=== PATIENT | female | born 1930 | race Asian ===

== ENCOUNTER 2018-12-24 03:14 | Inpatient (IN) | payer MEDICARE, MEDICAID ==
[2018-12-24] VITALS (7 sets, daily range): BP systolic 95–113; BP diastolic 47–54
[~2018-12-24] VITALS: Ht 157.5 cm; Wt 63.5 kg
[2018-12-24] MEDS ORDERED: METOPROLOL TART50 MG GT (03:29)
[2018-12-24] MEDS ORDERED: NORVASC5 MG ORAL (03:29)
[2018-12-24] MEDS ORDERED: HUMULIN N100 UNIT/1 SUBQ (03:29)
[2018-12-24] MEDS ORDERED: ASPIRIN81 M3 GT (03:29)
[2018-12-24] MEDS ORDERED: ATORVASTATIN CA10 MG GT (03:29)
[2018-12-24] MEDS ORDERED: COLACE100 MG GT (03:29)
[2018-12-24] MEDS ORDERED: Acetaminophen 650 MG SUPP RECTAL ONE (03:45)
[2018-12-24 04:19] LABS: HEMATOCRIT 32.8 % (37.0-47.0); HEMOGLOBIN 10.5 G/DL (12.0-16.0); MEAN CORPUSCULAR VOLUME 96 FL (80-99); PLATELET COUNT 208 K/UL (150-450); RED BLOOD COUNT 3.42 M/UL (4.20-5.40); RED CELL DISTRIBUTION WIDTH 16.4 % (11.6-14.8); WHITE BLOOD COUNT 19.8 K/UL (4.8-10.8)
--- NOTE | 2018-12-24 04:20 | Emergency Room Report ---
History of Present Illness General Chief Complaint: Dyspnea/Respdistress Source: Patient (Sebastian Flores MD) Present Illness HPI 88-year-old email resents ED for evaluation. Brought in by EMS. coming [facility]. Nursing staff noted that patient was short of breath tonight. Per EMS unclear whether patient is on oxygen at facility. Patient is unable to provide any additional history at this time. Also noted to be hypotensive. Reported fever as well. No signs of distress upon arrival. No reported chest pain. No other aggravating relieving factors. No other associated symptoms (Sebastian Flores MD) Allergies: Coded Allergies: No Known Allergies (Unverified , 12/24/18) Patient History Past Medical History: DM, HTN, CVA/TIA Past Surgical History: none Pertinent Family History: none Social History: Denies: smoking, alcohol use, drug use Last Menstrual Period: EVA Now: No Immunizations: UTD Reviewed Nursing Documentation: PMH: Agreed; PSxH: Agreed (Sebastian Flores MD) Nursing Documentation-PMH Past Medical History: No History, Except For Hx Hypertension: Yes Hx Diabetes: Yes Hx Cerebrovascular Accident: Yes - hemiplegia, hemiparesis, dysphagia, lumbar stenosis (Sebastian Flores MD) Review of Systems All Other Systems: limited (Sebastian Flores MD) Physical Exam Vital Signs Date Time Temp Pulse Resp B/P (MAP) Pulse Ox O2 Delivery O2 Flow Rate FiO2 12/24/18 03:14 99.3 109 20 93/62 93 Non-Rebreather Sp02 EP Interpretation: reviewed, normal General Appearance: no apparent distress, lethargic Head: normocephalic Eyes: bilateral eye normal inspection, bilateral eye PERRL ENT: normal ENT inspection Neck: normal inspection Respiratory: crackles Cardiovascular #1: regular rate, rhythm, no edema Gastrointestinal: normal bowel sounds, non tender, soft, non-distended, no guarding, no rebound Rectal: deferred Genitourinary: no CVA tenderness Musculoskeletal: normal inspection Neurologic: other - nonverbal Psychiatric: other - nonverbal Skin: normal inspection Lymphatic: normal inspection (Sebastian Flores MD) Procedures Critical Care Time Critical Care Time Patient had a critical medical condition which untreated could potentially result in life or limb threatening injury. Total critical care time excluding procedures was approximately 45 minutes. (Ruddy Agarwal MD) Medical Decision Making Diagnostic Impression: Primary Impression: Dyspnea Additional Impression: Respiratory distress ER Course Patient presents with severe respiratory distress. Seen by Dr. Flores. Patient was admitted to telemetry. While patient was in emergency department blood pressure began to decrease. Patient lactic acid level was also elevated. Blood cultures were obtained and patient was given fluid bolus. Patient was started IV antibiotics. Unfortunately patient appeared to be deteriorating with decrease in blood pressure and O2 saturation. Reevaluation shows that patient is showing worsening evidence of respiratory distress. We'll place the patient on BiPAP. Patient was also given fluid boluses to control blood pressure and lactic acid level. Case was discussed in detail with Dr. Pablo Oconnell who was in emergency department evaluated patient. Patient will be admitted to the [facility] for further management. Labs Test 12/24/18 04:14 12/24/18 05:15 12/24/18 06:20 White Blood Count 19.8 K/UL (4.8-10.8) Red Blood Count 3.42 M/UL (4.20-5.40) Hemoglobin 10.5 G/DL (12.0-16.0) Hematocrit 32.8 % (37.0-47.0) Mean Corpuscular Volume 96 FL (80-99) Mean Corpuscular Hemoglobin 30.8 PG (27.0-31.0) Mean Corpuscular Hemoglobin Concent 32.1 G/DL (32.0-36.0) Red Cell Distribution Width 16.4 % (11.6-14.8) Platelet Count 208 K/UL (150-450) Mean Platelet Volume 8.8 FL (6.5-10.1) Neutrophils (%) (Auto) % (45.0-75.0) Lymphocytes (%) (Auto) % (20.0-45.0) Monocytes (%) (Auto) % (1.0-10.0) Eosinophils (%) (Auto) % (0.0-3.0) Basophils (%) (Auto) % (0.0-2.0) Sodium Level 156 MMOL/L (136-145) Potassium Level 3.3 MMOL/L (3.5-5.1) Chloride Level 113 MMOL/L (98-107) Carbon Dioxide Level 33 MMOL/L (21-32) Anion Gap 11 mmol/L (5-15) Blood Urea Nitrogen 125 mg/dL (7-18) Creatinine 1.2 MG/DL (0.55-1.30) Estimat Glomerular Filtration Rate mL/min (>60) Glucose Level 137 MG/DL (74-106) Lactic Acid Level 2.70 mmol/L (0.4-2.0) Calcium Level 8.3 MG/DL (8.5-10.1) Total Bilirubin 0.8 MG/DL (0.2-1.0) Aspartate Amino Transf (AST/SGOT) 28 U/L (15-37) Alanine Aminotransferase (ALT/SGPT) 12 U/L (12-78) Alkaline Phosphatase 45 U/L (46-116) Total Creatine Kinase 76 U/L (26-308) Creatine Kinase MB < 0.5 NG/ML (0.0-3.6) Creatine Kinase MB Relative Index 0.6 Troponin I 0.101 ng/mL (0.000-0.056) Pro-B-Type Natriuretic Peptide 2146 pg/mL (0-125) Total Protein 7.7 G/DL (6.4-8.2) Albumin 2.9 G/DL (3.4-5.0) Globulin 4.8 g/dL Albumin/Globulin Ratio 0.6 (1.0-2.7) Urine Color Yellow Urine Appearance Cloudy Urine pH 7 (4.5-8.0) Urine Specific Buckner 1.010 (1.005-1.035) Urine Protein 2+ (NEGATIVE) Urine Glucose (UA) Negative (NEGATIVE) Urine Ketones Negative (NEGATIVE) Urine Blood Negative (NEGATIVE) Urine Nitrite Negative (NEGATIVE) Urine Bilirubin Negative (NEGATIVE) Urine Urobilinogen 1 MG/DL (0.0-1.0) Urine Leukocyte Esterase 1+ (NEGATIVE) Urine RBC 0-2 /HPF (0 - 2) Urine WBC 0-2 /HPF (0 - 2) Urine Squamous Epithelial Cells Few /LPF (NONE/OCC) Urine Bacteria Many /HPF (NONE) (Ruddy Agarwal MD) EKG Diagnostic Results Rate: tachycardiac Rhythm: NSR ST Segments: no acute changes ASA given to the pt in ED: No (Sebastian Flores MD) Rhythm Strip Diag. Results EP Interpretation: yes Rhythm: NSR, no ectopy (Sebastian Flores MD) Chest X-Ray Diagnostic Results Chest X-Ray Diagnostic Results : Chest X-Ray Ordered: Yes # of Views/Limited/Complete: 1 View Indication: Shortness of Breath EP Interpretation: Yes Interpretation: no effusion, no pneumothorax, other - Right-sided lower lobe cosolidation, pul congestion Impression: Other - Pneumonia Electronically Signed by: Electronically signed by Ruddy Agarwal MD (Ruddy Agarwal MD) Last Vital Signs Date Time Temp Pulse Resp B/P (MAP) Pulse Ox O2 Delivery O2 Flow Rate FiO2 12/24/18 03:14 99.3 109 20 93/62 93 Non-Rebreather Status: improved (Sebastian Flores MD) Status: improved (Ruddy Agarwal MD) Disposition: ADMITTED INPATIENT Condition: Serious Referrals: NON PHYSICIAN (PCP) Sebastian Flores MD Dec 24, 2018 04:20 Ruddy Agarwal MD Dec 24, 2018 07:22
[2018-12-24 04:33] LABS: ANION GAP 11 mmol/L (5-15); BLOOD UREA NITROGEN 125 mg/dL (7-18); CALCIUM 8.3 MG/DL (8.5-10.1); CARBON DIOXIDE 33 MMOL/L (21-32); CHLORIDE 113 MMOL/L (98-107); CREATININE 1.2 MG/DL (0.55-1.30); POTASSIUM 3.3 MMOL/L (3.5-5.1); SODIUM 156 MMOL/L (136-145)
[2018-12-24 04:47] LABS: ALANINE AMINOTRANSFERASE 12 U/L (12-78); ALBUMIN 2.9 G/DL (3.4-5.0); ALBUMIN/GLOBULIN RATIO 0.6 (1.0-2.7); ALKALINE PHOSPHATASE 45 U/L (46-116); ASPARTATE AMINO TRANSFERASE 28 U/L (15-37); BILIRUBIN,TOTAL 0.8 MG/DL (0.2-1.0); CKMB < 0.5 NG/ML (0.0-3.6); CREATINE KINASE 76 U/L (26-308)
[2018-12-24 05:27] LABS: BILIRUBIN, URINE NEGATIVE (NEGATIVE); GLUCOSE, URINE (UA) NEGATIVE (NEGATIVE); KETONES,URINE NEGATIVE (NEGATIVE); LEUKOCYTE ESTERASE ,URINE 1+ (NEGATIVE); NITRITE,URINE NEGATIVE (NEGATIVE); PH,URINE 7 (4.5-8.0); PROTEIN,URINE 2+ (NEGATIVE); UROBILINOGEN,URINE 1 MG/DL (0.0-1.0)
[2018-12-24 05:37] LABS: APPEARANCE,URINE CLOUDY; COLOR,URINE YELLOW
[2018-12-24] MEDS ORDERED: Piperacillin/Tazobactam 3.375 GM in NS 110 ML IVPB ONE (05:45)
[2018-12-24] MEDS ORDERED: Azithromycin 500 MG in NS 275 ML IV ONE (05:45)
[2018-12-24] MEDS: Metoprolol Tartrate 50mg tab GT SCH ×3 (10:00→21:24)
[2018-12-24] MEDS ORDERED: Docusate 100mg cap ORAL SCH (10:00)
[2018-12-24] MEDS: Aspirin Baby 81mg GT SCH ×2 (10:00→10:52)
[2018-12-24] MEDS: Docusate 100mg/10ml Liq GT SCH (10:52)
[2018-12-24] MEDS ORDERED: Vancomycin 1gm in D5W 275ml IVPB SCH ×4 (11:00)
--- NOTE | 2018-12-24 12:00 | History and Physical Report ---
DATE OF ADMISSION: 12/24/2018 CHIEF COMPLAINT: Sepsis, shortness of breath, acute NV. HISTORY OF PRESENT ILLNESS: The patient is an 88-year-old female. She has a prior history of stroke, G-tube, diabetes, and hypertension. She was transferred from a [place] [facility] facility with complaints of shortness of breath. The patient is a poor historian. She is unable to provide any history. In the emergency room, she was noted to be short of breath. She was placed on a non-rebreather. She had an elevated troponin of 0.1, sodium of 156, white count of 20,000. Her urine was clear. X-ray results are currently pending. The patient is now being admitted for further evaluation and care. PAST MEDICAL HISTORY: As above. PAST SURGICAL HISTORY: Includes a G-tube. CURRENT MEDICATIONS: Reconciled and reviewed. ALLERGIES: None. FAMILY HISTORY: Unknown. SOCIAL HISTORY: There is no known history of tobacco, ethanol, or drugs. REVIEW OF SYSTEMS: Unobtainable. PHYSICAL EXAMINATION: VITAL SIGNS: Temperature 103, pulse 95, respirations 32, and blood pressure 103/53. GENERAL: The patient is a chronically ill-appearing female, in no apparent distress. HEART: Regular rate and rhythm. LUNGS: Clear. ABDOMEN: Soft, nontender, and nondistended. EXTREMITIES: Without clubbing or cyanosis. LABORATORY DATA: Sodium 156, potassium 3.3, chloride 113, bicarb 33, BUN of 125, creatinine was 1.2. Lactic acid was 3.3. Troponin of 0.101. ASSESSMENT: This is an elderly female with history of diabetes, hypertension, stroke, admitted with complaints of sepsis: 1. Sepsis. 2. Possible acute NV. 3. Stroke. 4. History of hypertension. 5. Diabetes. PLAN: IV antibiotics. Supplemental oxygen. Breathing treatments as needed. We will follow up pending cultures. ID, Cardiology, and Pulmonary consultations to be obtained. We will continue G-tube feeds. Continue monitor blood sugars. We will titrate the patient's blood pressure regimen. Currently, the blood pressure is on the low side. We will monitor patient's lactic acid level. The patient's status is currently guarded. There for Do Not Resuscitate in the chart. Pablo Oconnell M.D. DR: KAMARI JOB#: [id number] CC:
[2018-12-24] MEDS: Piperacillin/Tazobactam 3.375 GM in D5W 110 ML IVPB SCH ×2 (12:17→20:09)
[2018-12-24] MEDS: Insulin NPH SUBQ SCH ×2 (12:18→17:26)
--- NOTE | 2018-12-24 12:21 | Diagnostic Imaging Report ---
Indication: Shortness of breath Technique: One view of the chest Comparison: none Findings: Heart is enlarged. There is equivocal mild interstitial congestion. The pleural spaces are clear. No focal airspace consolidation Impression: Cardiac megaly Equivocal mild interstitial congestion-correlate with clinical findings
[2018-12-24] MEDS: Heparin 5000 units/ml inj SUBQ SCH (21:31)
[2018-12-25] VITALS: BP 101/49
[2018-12-25 04:00] VITALS: BP 138/49
[2018-12-25] MEDS: Piperacillin/Tazobactam 3.375 GM in D5W 110 ML IVPB SCH ×2 (04:16→11:37)
[2018-12-25 04:35] LABS: HEMATOCRIT 25.4 % (37.0-47.0); HEMOGLOBIN 8.2 G/DL (12.0-16.0); MEAN CORPUSCULAR VOLUME 96 FL (80-99); PLATELET COUNT 148 K/UL (150-450); RED BLOOD COUNT 2.64 M/UL (4.20-5.40); RED CELL DISTRIBUTION WIDTH 15.9 % (11.6-14.8); WHITE BLOOD COUNT 15.1 K/UL (4.8-10.8)
--- NOTE | 2018-12-25 05:00 | Consultation ---
DATE OF CONSULTATION: 12/24/2018 CARDIOLOGY CONSULTATION CONSULTING PHYSICIAN: Jagjit Wright M.D. REQUESTING PHYSICIAN: Pablo Oconnell M.D. REASON FOR CONSULTATION: Acute myocardial infarction in the setting of sepsis. HISTORY OF PRESENT ILLNESS: This 88-year-old Urdu female resides at a [facility] facility and is debilitated as a result of a prior cerebrovascular accident. She has dysphagia and is dependent on a G-tube. She is aphasic. Her son is at bedside and reaffirmed DNR status. The patient was transferred to the emergency room because of shortness of breath. She was unable to provide history and charts were reviewed. She was placed on a non-rebreather mask and was noted to have severely abnormal lab studies. She was admitted to the cardiac observation unit and I have been asked to address cardiovascular care. PAST MEDICAL HISTORY: Includes cerebrovascular accident, dysphagia, G-tube, aphasia, type 2 diabetes mellitus, hypertensive heart disease, osteoarthritis, and osteoporosis. ALLERGIES: None. MEDICATIONS: Reviewed and reconciled. SOCIAL HISTORY: Negative for smoking, alcohol, or substance abuse. FAMILY HISTORY: Noncontributory. REVIEW OF SYSTEMS: Not obtainable from the patient at this time. Pertinent data from patient's son as outlined above. The patient does not have any details about her more recent situation as he resides in [place]. The patient did receive an influenza vaccination this season. PHYSICAL EXAMINATION: VITAL SIGNS: Temperature 103, blood pressure 103/53, heart rate 95, and respiratory rate 32. GENERAL: Ill-appearing, noncommunicative, and moderate respiratory distress. HEENT: Eyes are shut. Oropharynx clear. Accessory muscle use noted on BiPAP support. LUNGS: Coarse breath sounds. No wheezing. CARDIAC: Regular rhythm and rate. Normal S1, S2 with a fourth heart sound. ABDOMEN: Soft and nontender. G-tube site intact. EXTREMITIES: With no edema. Poor capillary refill is noted, and some mottling. LABORATORY DATA: White count 19.8 and hemoglobin 10.5. ABG - 7.5, 35, 369. Sodium 156 and potassium 3.3. Lactic acid 2.7. BUN 125, creatinine 1.2, bicarbonate 33, chloride 113, and glucose 137. Troponin 0.101. Pro-natriuretic peptide 2146. Albumin 2.9. Urinalysis with 0 to 2 white cells. Chest x-ray with interstitial congestion and cardiomegaly. EKG with sinus rhythm, nonspecific ST-T changes. IMPRESSION: 1. Sepsis. 2. Shock. 3. Severe dehydration. 4. Hypovolemia. 5. Possible aspiration pneumonia. 6. Acute myocardial ischemia and possible non-ST elevation infarction. 7. Elevated natriuretic peptide assay likely suggestive of chronic diastolic congestive heart failure. 8. Cerebrovascular disease with advanced dementia. 9. Lactic acidosis. PLAN: 1. Hypotonic IV fluids. 2. Free water by G-tube. 3. Broad-spectrum antibiotics. 4. DVT prophylaxis. 5. Inhaled bronchodilators. 6. Respiratory hygiene. 7. Taper off BiPAP as able. 8. No diuresis at this time. 9. Serial lactic acid levels. 10. Serial troponin levels. 11. DNR/DNI based on advanced directives. Jagjit Wright M.D. DR: JOSE JOB#: [id number] CC:
[2018-12-25 05:07] LABS: ALANINE AMINOTRANSFERASE 14 U/L (12-78); ALBUMIN 2.2 G/DL (3.4-5.0); ALBUMIN/GLOBULIN RATIO 0.6 (1.0-2.7); ALKALINE PHOSPHATASE 48 U/L (46-116); ANION GAP 6 mmol/L (5-15); ASPARTATE AMINO TRANSFERASE 30 U/L (15-37); BILIRUBIN,TOTAL 0.7 MG/DL (0.2-1.0); BLOOD UREA NITROGEN 67 mg/dL (7-18); CALCIUM 7.4 MG/DL (8.5-10.1); CARBON DIOXIDE 32 MMOL/L (21-32); CHLORIDE 121 MMOL/L (98-107); CREATININE 0.8 MG/DL (0.55-1.30); POTASSIUM 2.8 MMOL/L (3.5-5.1); SODIUM 159 MMOL/L (136-145)
[2018-12-25] MEDS: Insulin NPH SUBQ SCH ×2 (06:23→17:18)
[2018-12-25 08:00] VITALS: BP 101/56
[2018-12-25] MEDS: Aspirin Baby 81mg GT SCH (08:43)
[2018-12-25] MEDS: Heparin 5000 units/ml inj SUBQ SCH ×2 (08:45→21:00)
[2018-12-25] MEDS: Metoprolol Tartrate 50mg tab GT SCH ×2 (09:00→21:03)
--- NOTE | 2018-12-25 09:36 | General Progress Note ---
Assessment/Plan Problem List: (1) Sepsis ICD Codes: A41.9 - Sepsis, unspecified organism SNOMED: 12844255 (2) PNA (pneumonia) ICD Codes: J18.9 - Pneumonia, unspecified organism SNOMED: 851519070 (3) AMI (acute myocardial infarction) ICD Codes: I21.9 - Acute myocardial infarction, unspecified SNOMED: 84071139 (4) Dyspnea ICD Codes: R06.00 - Dyspnea, unspecified SNOMED: 606703558 (5) Respiratory distress ICD Codes: R06.03 - Acute respiratory distress SNOMED: 825038284 (6) Shortness of breath ICD Codes: R06.02 - Shortness of breath SNOMED: 077627252 Status: stable, progressing Assessment/Plan cont current rxc abx follow up culttures await labs will adjust fluids when labs back dvt/stress ulcer prophylaxis skin care antiplt Subjective ROS Limited/Unobtainable: No Constitutional: Reports: malaise, weakness HEENT: Reports: no symptoms Cardiovascular: Reports: no symptoms Respiratory: Reports: cough, shortness of breath Gastrointestinal/Abdominal: Reports: no symptoms Genitourinary: Reports: no symptoms Neurologic/Psychiatric: Reports: pre-existing deficit Endocrine: Reports: no symptoms Hematologic/Lymphatic: Reports: anemia Allergies: Coded Allergies: No Known Allergies (Unverified , 12/24/18) All Systems: reviewed and negative except above Subjective no events. seems less sob. no fever or chills. labs pending for today. remains withdrawn and poorly responsive Objective Last 24 Hour Vital Signs Date Time Temp Pulse Resp B/P (MAP) Pulse Ox O2 Delivery O2 Flow Rate FiO2 12/25/18 09:00 78 101/56 12/25/18 08:00 Bi-pap 12/25/18 08:00 97.9 78 18 101/56 (71) 99 12/25/18 04:00 Bi-pap 12/25/18 04:00 98.6 78 24 138/49 (78) 99 12/25/18 04:00 84 12/25/18 00:00 97.5 76 24 101/49 (66) 95 12/25/18 00:00 Bi-pap 12/25/18 00:00 74 12/24/18 21:00 78 113/54 12/24/18 20:54 78 16 99 Facial 40 12/24/18 20:00 73 12/24/18 20:00 45 12/24/18 20:00 98.4 80 18 113/54 (73) 99 12/24/18 20:00 Bi-pap 12/24/18 19:16 72 18 100 Facial 45 12/24/18 17:15 74 20 99 Facial 60 12/24/18 16:00 Bi-pap 12/24/18 16:00 98.1 76 22 98/53 (68) 98 12/24/18 16:00 76 12/24/18 16:00 60 12/24/18 15:20 84 22 97 Facial 60 12/24/18 14:52 Bi-pap 12/24/18 13:28 72 18 98 Facial 60 12/24/18 12:00 98.1 75 26 95/48 (64) 100 12/24/18 12:00 60 12/24/18 12:00 73 12/24/18 10:00 80 96/47 12/24/18 10:00 98.1 80 26 96/47 (63) 100 12/24/18 09:58 98.5 84 33 96/54 100 Bi-pap 100 Intake and Output 12/24/18 12/25/18 19:00 07:00 Intake Total 1790.0 ml 1863.0 ml Balance 1790.0 ml 1863.0 ml Free Water 150 ml 150 ml IV Total 1310.0 ml 1353.0 ml Tube Feeding 330 ml 360 ml # Voids 3 1 # Bowel Movements 3 2 Laboratory Tests 12/25/18 03:15: White Blood Count 15.1H, Red Blood Count 2.64L, Hemoglobin 8.2L, Hematocrit 25.4L, Mean Corpuscular Volume 96, Mean Corpuscular Hemoglobin 31.0, Mean Corpuscular Hemoglobin Concent 32.3, Red Cell Distribution Width 15.9H, Platelet Count 148L, Mean Platelet Volume 10.2H, Neutrophils (%) (Auto) , Lymphocytes (%) (Auto) , Monocytes (%) (Auto) , Eosinophils (%) (Auto) , Basophils (%) (Auto) , Sodium Level 159H, Potassium Level 2.8L, Chloride Level 121H, Carbon Dioxide Level 32, Anion Gap 6, Blood Urea Nitrogen 67H, Creatinine 0.8, Estimat Glomerular Filtration Rate , Glucose Level 94, Lactic Acid Level 1.80, Calcium Level 7.4L, Total Bilirubin 0.7, Aspartate Amino Transf (AST/SGOT ) 30, Alanine Aminotransferase (ALT/SGPT) 14, Alkaline Phosphatase 48, Troponin I 0.043, Total Protein 5.8L, Albumin 2.2L, Globulin 3.6, Albumin/Globulin Ratio 0.6L Height (Feet): 5 Height (Inches): 2.00 Weight (Pounds): 160 General Appearance: WD/WN, no apparent distress, confused Cardiovascular: regular rhythm Respiratory/Chest: chest wall non-tender, lungs clear, normal breath sounds Abdomen: normal bowel sounds, non tender, soft, no organomegaly Edema: no edema noted Arm (L), no edema noted Arm (R), no edema noted Leg (L), no edema noted Leg (R), no edema noted Pedal (L), no edema noted Pedal (R), no edema noted Generalized Neurologic: disoriented, unresponsive, aphasia Pablo Oconnell MD Dec 25, 2018 09:36
[2018-12-25] MEDS ORDERED: Vancomycin 750mg/D5W 275ml IVPB SCH ×2 (11:00)
[2018-12-25] MEDS: Docusate 100mg/10ml Liq GT SCH (11:35)
[2018-12-25 12:00] VITALS: BP 112/62
[2018-12-25 13:35] LABS: ALANINE AMINOTRANSFERASE 11 U/L (12-78); ALBUMIN 2.2 G/DL (3.4-5.0); ALBUMIN/GLOBULIN RATIO 0.6 (1.0-2.7); ALKALINE PHOSPHATASE 54 U/L (46-116); ANION GAP 7 mmol/L (5-15); ASPARTATE AMINO TRANSFERASE 24 U/L (15-37); BILIRUBIN,TOTAL 0.8 MG/DL (0.2-1.0); BLOOD UREA NITROGEN 54 mg/dL (7-18); CALCIUM 7.6 MG/DL (8.5-10.1); CARBON DIOXIDE 29 MMOL/L (21-32); CHLORIDE 120 MMOL/L (98-107); CREATININE 0.8 MG/DL (0.55-1.30); POTASSIUM 3.3 MMOL/L (3.5-5.1); SODIUM 156 MMOL/L (136-145)
--- NOTE | 2018-12-25 15:45 | Consultation ---
DATE OF CONSULTATION: 12/25/2018 INFECTIOUS DISEASES CONSULTATION CONSULTING PHYSICIAN: Flavia Macdonald M.D. REFERRING PHYSICIAN: Jagjit Wright M.D. REASON FOR CONSULTATION: Possible aspiration pneumonia. HISTORY OF PRESENTING ILLNESS: This is an 88-year-old lady with history of CVA, G-tube placement, diabetes, hypertension, who was transferred to the emergency room because of shortness of breath. She was found to have pneumonia and Infectious Diseases consultation has been obtained for antibiotics. PAST MEDICAL HISTORY: 1. History of CVA. 2. Dysphagia, status post G-tube placement. 3. Diabetes. 4. Hypertension. 5. Osteoarthritis. 6. Osteoporosis. SOCIAL HISTORY: No history of smoking, alcohol, or drug use. FAMILY HISTORY: Unknown. REVIEW OF SYSTEMS: Unable to obtain currently. MEDICATIONS: As an inpatient, the patient is on potassium, vancomycin, subcutaneous heparin, Zosyn, insulin, aspirin, metoprolol, albuterol, ipratropium, docusate. ALLERGIES: No known drug allergies. PHYSICAL EXAMINATION: VITAL SIGNS: Temperature of 97.9, T-max of 98.8, pulse of 78, respiratory rate of 18, blood pressure 101/56, O2 saturation of 99%. HEENT: Pupils equally reactive to light and accommodation. Mouth appears clean without thrush. NECK: Supple. No adenopathy. No JVD. CARDIOVASCULAR: Regular rate and rhythm. No murmurs. LUNGS: Clear to auscultation bilaterally. No crackles. No wheezes. ABDOMEN: Soft and nontender. No organomegaly. G-tube site appears clean. EXTREMITIES: No cyanosis. No clubbing. Edema noted bilaterally. LABORATORY AND DIAGNOSTIC DATA: White count of 19 on 12/24/2018. White count of 15 today. Hemoglobin 8.2, hematocrit 25.4, MCV 96, platelet count of 148,000. Sodium 159, potassium 2.8, chloride 121, bicarbonate 32, BUN 67, creatinine 0.8, glucose 94, calcium 7.4, total bilirubin 0.7, AST 30, ALT 14, alkaline phosphatase 48. Troponin 0.043. Total protein 5.8, albumin 2.2. UA is showing 0 to 2 white cells. Urine cultures are pending. Nasal swab was negative for influenza A and B. Chest x-ray is showing equivocal mild interstitial congestion. ASSESSMENT: This is an 88-year-old lady with history of diabetes, hypertension, CVA, who comes in with shortness of breath and is found to have: 1. Possible aspiration pneumonia. 2. Leukocytosis is improving. 3. Diabetes. 4. Hypertension. PLAN: 1. Continue IV vancomycin and Zosyn. 2. We will order sputum for Gram stain and culture. 3. We will follow up cultures and adjust antibiotics accordingly. I would like to thank Dr. Oconnell for this consultation. Flavia Macdonald M.D. DR: Jaycob JOB#: [id number] CC: Pablo Oconnell M.D.
[2018-12-25 16:00] VITALS: BP 127/69
[2018-12-25] MEDS: Albuterol/Ipratropium 3ml neb HHN PRN (17:10)
[2018-12-25] MEDS: NovoLOG Insulin Flexpen SUBQ SCH ×2 (17:18→23:11)
[2018-12-25 20:00] VITALS: BP 135/62
[2018-12-25] MEDS: Piperacillin/Tazobactam 3.375 GM in NS 110 ML IVPB SCH (21:00)
[2018-12-26] VITALS: BP 129/64
--- NOTE | 2018-12-26 01:00 | Progress Note ---
DATE: 12/25/2018 SUBJECTIVE: The patient is less congested, but at times still short of breath. No fever spikes. Withdrawn and poorly responsive. Monitored rhythm, sinus arrhythmia, rare PACs. PHYSICAL EXAMINATION: LUNGS: Bilateral breath sounds. Rhonchi. HEART: Regular rhythm and rate. Normal S1, S2 with a fourth heart sound and a 1/6 systolic murmur at the base. ABDOMEN: Soft. No ascites. EXTREMITIES: With better capillary refill. Trace dependent edema. LABORATORY DATA: White count 15, hemoglobin 8.2. Sodium 156, potassium 3.1, BUN 54, creatinine 0.8, potassium 3.3, and chloride 120. Albumin 2.2. Lactic acid is 1.8. IMPRESSION: 1. Severe sepsis. 2. Aspiration pneumonia. 3. Type 2 diabetes mellitus. 4. Severe dehydration. 5. Hypernatremia. 6. Hyperchloremia. 7. Hypokalemia. 8. Severe protein-calorie malnutrition. 9. Prerenal azotemia. 10. Resolved lactic acidosis. 11. Atrial ectopy and arrhythmia. PLAN: 1. Antimicrobials. 2. Respiratory hygiene. 3. Aspiration precautions. 4. Potassium replacement. 5. DVT prophylaxis. 6. Further recommendations to follow. 7. DNR/DNI based on advanced directives. 8. Nutrition by G-tube. Jagjit Wright M.D. DRMukesh CHEN JOB#: [id number] CC:
--- NOTE | 2018-12-26 01:26 | Cardiology Report ---
APPROVED REPORT EKG Measurement Heart [id number] Sinus tachycardia with premature supraventricular complexes Left axis deviation Moderate voltage criteria for LVH, may be normal variant Abnormal ECG
[2018-12-26 04:00] VITALS: BP 126/55
[2018-12-26] MEDS: Piperacillin/Tazobactam 3.375 GM in NS 110 ML IVPB SCH ×3 (04:15→20:48)
[2018-12-26] MEDS: NovoLOG Insulin Flexpen SUBQ SCH ×3 (05:08→17:34)
[2018-12-26 05:45] LABS: HEMATOCRIT 24.4 % (37.0-47.0); HEMOGLOBIN 7.8 G/DL (12.0-16.0); MEAN CORPUSCULAR VOLUME 97 FL (80-99); PLATELET COUNT 152 K/UL (150-450); RED BLOOD COUNT 2.52 M/UL (4.20-5.40); RED CELL DISTRIBUTION WIDTH 16.5 % (11.6-14.8); WHITE BLOOD COUNT 9.4 K/UL (4.8-10.8)
[2018-12-26] MEDS: Insulin NPH SUBQ SCH ×2 (05:45→17:33)
[2018-12-26 06:22] LABS: ALANINE AMINOTRANSFERASE 14 U/L (12-78); ALBUMIN 2.1 G/DL (3.4-5.0); ALBUMIN/GLOBULIN RATIO 0.6 (1.0-2.7); ALKALINE PHOSPHATASE 46 U/L (46-116); ANION GAP 8 mmol/L (5-15); ASPARTATE AMINO TRANSFERASE 26 U/L (15-37); BILIRUBIN,TOTAL 0.6 MG/DL (0.2-1.0); BLOOD UREA NITROGEN 39 mg/dL (7-18); CALCIUM 7.9 MG/DL (8.5-10.1); CARBON DIOXIDE 28 MMOL/L (21-32); CHLORIDE 122 MMOL/L (98-107); CREATININE 0.7 MG/DL (0.55-1.30); POTASSIUM 3.8 MMOL/L (3.5-5.1); SODIUM 158 MMOL/L (136-145)
[2018-12-26 08:00] VITALS: BP 120/56
--- NOTE | 2018-12-26 08:45 | General Progress Note ---
Assessment/Plan Problem List: (1) Sepsis ICD Codes: A41.9 - Sepsis, unspecified organism SNOMED: 57451156 (2) PNA (pneumonia) ICD Codes: J18.9 - Pneumonia, unspecified organism SNOMED: 136091846 (3) AMI (acute myocardial infarction) ICD Codes: I21.9 - Acute myocardial infarction, unspecified SNOMED: 30700362 (4) Dyspnea ICD Codes: R06.00 - Dyspnea, unspecified SNOMED: 152079872 (5) Respiratory distress ICD Codes: R06.03 - Acute respiratory distress SNOMED: 457957520 (6) Shortness of breath ICD Codes: R06.02 - Shortness of breath SNOMED: 209930823 Status: stable Assessment/Plan cont current rxc abx follow up culttures await labs hypotonic ivf repeat cbc monitor bmp dvt/stress ulcer prophylaxis skin care antiplt Subjective ROS Limited/Unobtainable: No Constitutional: Reports: malaise, weakness HEENT: Reports: no symptoms Cardiovascular: Reports: no symptoms Respiratory: Reports: no symptoms Gastrointestinal/Abdominal: Reports: no symptoms Genitourinary: Reports: no symptoms Neurologic/Psychiatric: Reports: pre-existing deficit Endocrine: Reports: no symptoms Hematologic/Lymphatic: Reports: no symptoms Allergies: Coded Allergies: No Known Allergies (Unverified , 12/24/18) All Systems: reviewed and negative except above Subjective no events. seems less sob. no fever or chills. elevated sodium noted. decrease h /h noted. . remains withdrawn and poorly responsive Objective Last 24 Hour Vital Signs Date Time Temp Pulse Resp B/P (MAP) Pulse Ox O2 Delivery O2 Flow Rate FiO2 12/26/18 08:00 98.4 80 27 120/56 (77) 100 12/26/18 08:00 Venturi Mask Venturi Mask Venturi Mask 12/26/18 04:00 Venturi Mask Venturi Mask Venturi Mask 12/26/18 04:00 96.8 76 24 126/55 (78) 100 12/26/18 04:00 82 12/26/18 00:00 97.9 85 24 129/64 (85) 98 12/26/18 00:00 Venturi Mask Venturi Mask Venturi Mask 12/26/18 00:00 83 12/25/18 23:35 97 Venturi Mask 8.0 40 12/25/18 23:35 Venturi Mask 8.0 40 12/25/18 21:03 92 135/62 12/25/18 20:00 98.1 92 24 135/62 (86) 98 12/25/18 20:00 Venturi Mask Venturi Mask Venturi Mask 12/25/18 19:55 88 12/25/18 17:23 92 28 98 Venturi Mask 8.0 40 12/25/18 17:11 89 32 100 Venturi Mask 12.0 50 12/25/18 16:00 98.1 88 22 127/69 (88) 100 12/25/18 16:00 Bi-pap 12/25/18 15:41 88 12/25/18 12:01 Bi-pap 12/25/18 12:00 98.1 88 24 112/62 (79) 98 12/25/18 11:31 89 12/25/18 09:00 78 101/56 Intake and Output 12/25/18 12/26/18 19:00 07:00 Intake Total 1637.5 ml 1580.0 ml Output Total 600 ml 200 ml Balance 1037.5 ml 1380.0 ml Free Water 150 ml 90 ml IV Total 1127.5 ml 1190.0 ml Tube Feeding 360 ml 300 ml Output Urine Total 600 ml 200 ml # Voids 1 # Bowel Movements 4 2 Laboratory Tests 12/25/18 13:15: Sodium Level 156H, Potassium Level 3.3L, Chloride Level 120H, Carbon Dioxide Level 29, Anion Gap 7, Blood Urea Nitrogen 54H, Creatinine 0.8, Estimat Glomerular Filtration Rate , Glucose Level 175H, Calcium Level 7.6L, Total Bilirubin 0.8, Aspartate Amino Transf (AST/SGOT) 24, Alanine Aminotransferase ( ALT/SGPT) 11L, Alkaline Phosphatase 54, Total Protein 6.2L, Albumin 2.2L, Globulin 4.0, Albumin/Globulin Ratio 0.6L 12/26/18 03:15: Sodium Level 158H, Potassium Level 3.8, Chloride Level 122H, Carbon Dioxide Level 28, Anion Gap 8, Blood Urea Nitrogen 39H, Creatinine 0.7, Estimat Glomerular Filtration Rate , Glucose Level 111H, Calcium Level 7.9L, Total Bilirubin 0.6, Aspartate Amino Transf (AST/SGOT) 26, Alanine Aminotransferase ( ALT/SGPT) 14, Alkaline Phosphatase 46, Total Protein 5.7L, Albumin 2.1L, Globulin 3.6, Albumin/Globulin Ratio 0.6L, White Blood Count 9.4, Red Blood Count 2.52L, Hemoglobin 7.8L, Hematocrit 24.4L, Mean Corpuscular Volume 97, Mean Corpuscular Hemoglobin 31.1H, Mean Corpuscular Hemoglobin Concent 32.1, Red Cell Distribution Width 16.5H, Platelet Count 152, Mean Platelet Volume 9.5 , Neutrophils (%) (Auto) , Lymphocytes (%) (Auto) , Monocytes (%) (Auto) , Eosinophils (%) (Auto) , Basophils (%) (Auto) , Differential Total Cells Counted 100, Neutrophils % (Manual) 88H, Lymphocytes % (Manual) 8L, Monocytes % (Manual) 3, Eosinophils % (Manual) 1, Basophils % (Manual) 0, Band Neutrophils 0 , Platelet Estimate Adequate, Platelet Morphology Normal, Anisocytosis 1+, Magnesium Level 3.1H Height (Feet): 5 Height (Inches): 2.00 Weight (Pounds): 138 Objective General Appearance: WD/WN, no apparent distress, confused Cardiovascular: regular rhythm Respiratory/Chest: chest wall non-tender, lungs clear, normal breath sounds Abdomen: normal bowel sounds, non tender, soft, no organomegaly Edema: no edema noted Arm (L), no edema noted Arm (R), no edema noted Leg (L), no edema noted Leg (R), no edema noted Pedal (L), no edema noted Pedal (R), no edema noted Generalized Neurologic: disoriented, unresponsive, aphasia Pablo Oconnell MD Dec 26, 2018 08:45
[2018-12-26] MEDS: Docusate 100mg/10ml Liq GT SCH (08:52)
[2018-12-26] MEDS: Aspirin Baby 81mg GT SCH (08:52)
[2018-12-26] MEDS: Metoprolol Tartrate 50mg tab GT SCH ×2 (08:53→20:49)
[2018-12-26] MEDS: Heparin 5000 units/ml inj SUBQ SCH ×2 (08:54→20:51)
[2018-12-26 09:15] LABS: BASOPHILS % (AUTO) 0.6 % (0.0-2.0); EOSINOPHILS % (AUTO) 4.4 % (0.0-3.0); HEMATOCRIT 25.7 % (37.0-47.0); HEMOGLOBIN 8.2 G/DL (12.0-16.0); LYMPHOCYTES % (AUTO) 10.3 % (20.0-45.0); MEAN CORPUSCULAR VOLUME 97 FL (80-99); MONOCYTES % (AUTO) 4.5 % (1.0-10.0); NEUTROPHILS % (AUTO) 80.2 % (45.0-75.0); PLATELET COUNT 155 K/UL (150-450); RED BLOOD COUNT 2.65 M/UL (4.20-5.40); RED CELL DISTRIBUTION WIDTH 16.2 % (11.6-14.8); WHITE BLOOD COUNT 8.5 K/UL (4.8-10.8)
[2018-12-26 09:33] LABS: % IRON SATURATION 23 % (15-50); IRON 36 ug/dL (50-175); TOTAL IRON BINDING CAPACITY 159 ug/dL (250-450)
[2018-12-26] MEDS ORDERED: Vancomycin 750 MG in NS 275 ML IVPB SCH (11:00)
--- NOTE | 2018-12-26 11:13 | Diagnostic Imaging Report ---
Indication: Shortness of breath Technique: One view of the chest Comparison: 12/24/2018 Findings: Interim development of infiltrates in the right mid and lower lung. The left hemidiaphragm is partially obscured, retrocardiac consolidation also possible. The heart is enlarged. The right costophrenic angle is now blunted. Impression: Infiltrates versus edema in the right mid and lower lung, new since previous study of 2 days earlier Small right pleural effusion, also new Partially obscured left hemidiaphragm, retrocardiac pleural and/or parenchymal disease also likely
[2018-12-26 12:00] VITALS: BP 103/58
--- NOTE | 2018-12-26 12:50 | Infectious Diseases Prog Note ---
Assessment/Plan Assessment/Plan A; 1. aspiration pneumonia. 2. Leukocytosis is improving. 3. Diabetes. 4. Hypertension. 5. Hypernatremia 6. Anemia 7. Bacteremia with GPC PLAN: 1. Continue IV vancomycin and Zosyn. 2. We will follow up cultures and adjust antibiotics accordingly. Subjective ROS Limited/Unobtainable: Yes Allergies: Coded Allergies: No Known Allergies (Unverified , 12/24/18) Objective Vital Signs Last 24 Hour Vital Signs Date Time Temp Pulse Resp B/P (MAP) Pulse Ox O2 Delivery O2 Flow Rate FiO2 12/26/18 08:53 80 120/56 12/26/18 08:00 98.4 80 27 120/56 (77) 100 12/26/18 08:00 Venturi Mask Venturi Mask Venturi Mask 12/26/18 08:00 81 12/26/18 04:00 Venturi Mask Venturi Mask Venturi Mask 12/26/18 04:00 96.8 76 24 126/55 (78) 100 12/26/18 04:00 82 12/26/18 00:00 97.9 85 24 129/64 (85) 98 12/26/18 00:00 Venturi Mask Venturi Mask Venturi Mask 12/26/18 00:00 83 12/25/18 23:35 97 Venturi Mask 8.0 40 12/25/18 23:35 Venturi Mask 8.0 40 12/25/18 21:03 92 135/62 12/25/18 20:00 98.1 92 24 135/62 (86) 98 12/25/18 20:00 Venturi Mask Venturi Mask Venturi Mask 12/25/18 19:55 88 12/25/18 17:23 92 28 98 Venturi Mask 8.0 40 12/25/18 17:11 89 32 100 Venturi Mask 12.0 50 12/25/18 16:00 98.1 88 22 127/69 (88) 100 12/25/18 16:00 Bi-pap 12/25/18 15:41 88 Height (Feet): 5 Height (Inches): 2.00 Weight (Pounds): 138 General Appearance: no acute distress HEENT: mucous membranes moist Respiratory/Chest: rhonchi - bilaterally, other - Oxygen by mask Cardiovascular: normal rate Abdomen: soft, non tender, other - GT feeding Extremities: no edema Neurologic/Psychiatric: unresponsiveness Microbiology Date/Time Source Procedure Growth Status 12/24/18 04:06 Blood Blood Culture - Preliminary Resulted 12/24/18 04:00 Blood Blood Culture - Preliminary NO GROWTH AFTER 24 HOURS Resulted 12/24/18 05:20 Nasal Nares Influenza Types A,B Antigen ([facility]) - Final Complete 12/24/18 04:30 Nasal Nares MRSA Culture - Final NO METHICILLIN RESISTANT STAPH AUREUS... Complete 12/24/18 05:15 Urine,Clean Catch Urine Culture - Preliminary Strep Species, Alpha Hemolytic Resulted 12/24/18 04:30 Rectum - Final NO CARBAPENEM-RESISTANT ENTEROBACTERI... Complete 12/24/18 04:30 Rectum VRE Culture - Final NO VANCOMYCIN RESISTANT ENTEROCOCCUS ... Complete Laboratory Tests Test 12/25/18 13:15 12/26/18 03:15 12/26/18 08:45 12/26/18 10:09 Sodium Level 156 MMOL/L (136-145) H 158 MMOL/L (136-145) H Potassium Level 3.3 MMOL/L (3.5-5.1) L 3.8 MMOL/L (3.5-5.1) Chloride Level 120 MMOL/L (98-107) H 122 MMOL/L (98-107) H Carbon Dioxide Level 29 MMOL/L (21-32) 28 MMOL/L (21-32) Anion Gap 7 mmol/L (5-15) 8 mmol/L (5-15) Blood Urea Nitrogen 54 mg/dL (7-18) H 39 mg/dL (7-18) H Creatinine 0.8 MG/DL (0.55-1.30) 0.7 MG/DL (0.55-1.30) Estimat Glomerular Filtration Rate mL/min (>60) mL/min (>60) Glucose Level 175 MG/DL (74-106) H 111 MG/DL (74-106) H Calcium Level 7.6 MG/DL (8.5-10.1) L 7.9 MG/DL (8.5-10.1) L Total Bilirubin 0.8 MG/DL (0.2-1.0) 0.6 MG/DL (0.2-1.0) Aspartate Amino Transf (AST/SGOT) 24 U/L (15-37) 26 U/L (15-37) Alanine Aminotransferase (ALT/SGPT) 11 U/L (12-78) L 14 U/L (12-78) Alkaline Phosphatase 54 U/L (46-116) 46 U/L (46-116) Total Protein 6.2 G/DL (6.4-8.2) L 5.7 G/DL (6.4-8.2) L Albumin 2.2 G/DL (3.4-5.0) L 2.1 G/DL (3.4-5.0) L Globulin 4.0 g/dL 3.6 g/dL Albumin/Globulin Ratio 0.6 (1.0-2.7) L 0.6 (1.0-2.7) L White Blood Count 9.4 K/UL (4.8-10.8) 8.5 K/UL (4.8-10.8) Red Blood Count 2.52 M/UL (4.20-5.40) L 2.65 M/UL (4.20-5.40) L Hemoglobin 7.8 G/DL (12.0-16.0) L 8.2 G/DL (12.0-16.0) L Hematocrit 24.4 % (37.0-47.0) L 25.7 % (37.0-47.0) L Mean Corpuscular Volume 97 FL (80-99) 97 FL (80-99) Mean Corpuscular Hemoglobin 31.1 PG (27.0-31.0) H 30.8 PG (27.0-31.0) Mean Corpuscular Hemoglobin Concent 32.1 G/DL (32.0-36.0) 31.8 G/DL (32.0-36.0) L Red Cell Distribution Width 16.5 % (11.6-14.8) H 16.2 % (11.6-14.8) H Platelet Count 152 K/UL (150-450) 155 K/UL (150-450) Mean Platelet Volume 9.5 FL (6.5-10.1) 9.1 FL (6.5-10.1) Neutrophils (%) (Auto) % (45.0-75.0) 80.2 % (45.0-75.0) H Lymphocytes (%) (Auto) % (20.0-45.0) 10.3 % (20.0-45.0) L Monocytes (%) (Auto) % (1.0-10.0) 4.5 % (1.0-10.0) Eosinophils (%) (Auto) % (0.0-3.0) 4.4 % (0.0-3.0) H Basophils (%) (Auto) % (0.0-2.0) 0.6 % (0.0-2.0) Differential Total Cells Counted 100 Neutrophils % (Manual) 88 % (45-75) H Lymphocytes % (Manual) 8 % (20-45) L Monocytes % (Manual) 3 % (1-10) Eosinophils % (Manual) 1 % (0-3) Basophils % (Manual) 0 % (0-2) Band Neutrophils 0 % (0-8) Platelet Estimate Adequate Platelet Morphology Normal Anisocytosis 1+ Magnesium Level 3.1 MG/DL (1.8-2.4) H Iron Level 36 ug/dL (50-175) L Total Iron Binding Capacity 159 ug/dL (250-450) L Percent Iron Saturation 23 % (15-50) Unsaturated Iron Binding 123 ug/dL (112-346) Arterial Blood pH 7.453 (7.350-7.450) Arterial Blood Partial Pressure CO2 39.9 mmHg (35.0-45.0) Arterial Blood Partial Pressure O2 85.1 mmHg (75.0-100.0) Arterial Blood HCO3 27.3 mmol/L (22.0-26.0) H Arterial Blood Oxygen Saturation 95.8 % (95-100) Arterial Blood Base Excess 3.1 (-2-2) H Brennon Test Positive Current Medications Medications (Trade) Dose Ordered Sig/João Route PRN Reason Start Time Stop Time Status Last Admin Dose Admin Albuterol/ Ipratropium (Albuterol/ Ipratropium) 3 ml Q4H PRN HHN Shortness of Breath 12/24/18 10:00 12/29/18 09:59 12/25/18 17:10 Aspirin (ASA) 81 mg DAILY GT 12/24/18 10:00 01/23/19 09:59 12/26/18 08:52 Dextrose 1,000 ml @ 75 mls/hr [id number] IV 12/26/18 08:45 4/5/19 08:44 12/26/18 08:53 Dextrose (Dextrose 50%) 25 ml Q30M PRN IV Hypoglycemia 12/25/18 16:30 01/24/19 16:29 Dextrose (Dextrose 50%) 50 ml Q30M PRN IV Hypoglycemia 12/25/18 16:30 01/24/19 16:29 Docusate Sodium (Colace) 100 mg DAILY GT 12/24/18 10:00 01/23/19 09:59 12/26/18 08:52 Heparin Sodium (Porcine) (Heparin 5000 units/ml) 5,000 units EVERY 12 HOURS SUBQ 12/24/18 21:00 01/23/19 20:59 12/26/18 08:54 Insulin Aspart (NovoLOG) Q6HR SUBQ 12/25/18 18:00 01/24/19 17:59 12/26/18 11:42 Insulin Human NPH (Humulin N) 12 units BIAC SUBQ 12/24/18 11:30 01/23/19 11:29 12/25/18 17:18 Metoprolol Tartrate (Lopressor) 50 mg EVERY 12 HOURS GT 12/24/18 10:00 01/23/19 09:59 12/26/18 08:53 Piperacillin Sod/ Tazobactam Sod 3.375 gm/Sodium Chloride 110 ml @ 27.5 mls/hr Q8H IVPB 12/25/18 20:00 01/01/19 19:59 12/26/18 11:40 Vancomycin HCl (Vanco rx to dose) 1 ea DAILY PRN MISC Per rx protocol 12/24/18 07:30 01/23/19 07:29 Vancomycin HCl 750 mg/Sodium Chloride 275 ml @ 183.333 mls/hr Q24H IVPB 12/26/18 11:00 12/30/18 10:59 12/26/18 11:41 Moi Zaldivar MD Dec 26, 2018 12:50
[2018-12-26 16:00] VITALS: BP 121/62
[2018-12-26 20:00] VITALS: BP 130/58
[2018-12-27] VITALS: BP 122/59
--- NOTE | 2018-12-27 00:31 | Progress Note ---
DATE: 12/26/2018 CARDIOLOGY PROGRESS NOTE SUBJECTIVE: The patient is less short of breath, but continues to be withdrawn and lethargic. OBJECTIVE: VITAL SIGNS: Blood pressure 120/56, pulse 80, and respirations 27. Afebrile. Monitored rhythm sinus. Atrial ectopics. LUNGS: Good breath sounds. Few rhonchi. HEART: Regular rhythm and rate. Normal S1, S2. ABDOMEN: Soft. EXTREMITIES: Trace edema. LABORATORY DATA: White count 8.5 and hemoglobin 8.2. Sodium 158, potassium 3.8, BUN 39, and creatinine 0.7. Albumin 2.1. IMPRESSION: 1. Dehydration. 2. Hypernatremia. 3. Sepsis. 4. Worsening pneumonia due to aspiration. PLAN: 1. Antimicrobials. 2. Respiratory hygiene. 3. Hypotonic intravenous fluid hydration. 4. DVT prophylaxis. 5. Nutrition by G-tube. Jagjit Wright M.D. DR: TRESSA JOB#: [id number] CC:
[2018-12-27] MEDS: NovoLOG Insulin Flexpen SUBQ SCH ×5 (00:38→23:22)
[2018-12-27] MEDS: Albuterol/Ipratropium 3ml neb HHN PRN (03:39)
[2018-12-27 04:00] VITALS: BP 130/74
[2018-12-27] MEDS: Piperacillin/Tazobactam 3.375 GM in NS 110 ML IVPB SCH ×3 (04:37→21:06)
[2018-12-27 05:39] LABS: BASOPHILS % (AUTO) 0.5 % (0.0-2.0); EOSINOPHILS % (AUTO) 6.7 % (0.0-3.0); HEMATOCRIT 25.9 % (37.0-47.0); HEMOGLOBIN 8.1 G/DL (12.0-16.0); LYMPHOCYTES % (AUTO) 14.7 % (20.0-45.0); MEAN CORPUSCULAR VOLUME 96 FL (80-99); MONOCYTES % (AUTO) 4.5 % (1.0-10.0); NEUTROPHILS % (AUTO) 73.7 % (45.0-75.0); PLATELET COUNT 187 K/UL (150-450); RED BLOOD COUNT 2.69 M/UL (4.20-5.40); RED CELL DISTRIBUTION WIDTH 15.6 % (11.6-14.8); WHITE BLOOD COUNT 7.9 K/UL (4.8-10.8)
[2018-12-27 06:21] LABS: ALANINE AMINOTRANSFERASE 14 U/L (12-78); ALBUMIN 1.9 G/DL (3.4-5.0); ALBUMIN/GLOBULIN RATIO 0.5 (1.0-2.7); ALKALINE PHOSPHATASE 48 U/L (46-116); ANION GAP 7 mmol/L (5-15); ASPARTATE AMINO TRANSFERASE 24 U/L (15-37); BILIRUBIN,TOTAL 0.5 MG/DL (0.2-1.0); BLOOD UREA NITROGEN 20 mg/dL (7-18); CARBON DIOXIDE 26 MMOL/L (21-32); CHLORIDE 119 MMOL/L (98-107); CREATININE 0.6 MG/DL (0.55-1.30); POTASSIUM 3.8 MMOL/L (3.5-5.1); SODIUM 152 MMOL/L (136-145)
[2018-12-27] MEDS: Insulin NPH SUBQ SCH ×2 (06:25→17:36)
[2018-12-27 06:43] LABS: PHOSPHORUS 2.7 MG/DL (2.5-4.9)
[2018-12-27 08:00] VITALS: BP 112/63
[2018-12-27] MEDS: Docusate 100mg/10ml Liq GT SCH (08:36)
[2018-12-27] MEDS: Aspirin Baby 81mg GT SCH (08:36)
[2018-12-27] MEDS: Heparin 5000 units/ml inj SUBQ SCH ×2 (08:42→21:03)
--- NOTE | 2018-12-27 08:42 | General Progress Note ---
Assessment/Plan Problem List: (1) Sepsis ICD Codes: A41.9 - Sepsis, unspecified organism SNOMED: 41351555 (2) PNA (pneumonia) ICD Codes: J18.9 - Pneumonia, unspecified organism SNOMED: 956704799 (3) AMI (acute myocardial infarction) ICD Codes: I21.9 - Acute myocardial infarction, unspecified SNOMED: 60731682 (4) Dyspnea ICD Codes: R06.00 - Dyspnea, unspecified SNOMED: 027258804 (5) Respiratory distress ICD Codes: R06.03 - Acute respiratory distress SNOMED: 132298730 (6) Shortness of breath ICD Codes: R06.02 - Shortness of breath SNOMED: 601776522 Status: stable, not improved Assessment/Plan cont current rx iv abx per id follow up culttures await labs hypotonic ivf monitor bmp dvt/stress ulcer prophylaxis skin care antiplt poor prognosis Subjective ROS Limited/Unobtainable: Yes Constitutional: Reports: malaise, weakness HEENT: Reports: no symptoms Cardiovascular: Reports: no symptoms Respiratory: Reports: cough, shortness of breath Gastrointestinal/Abdominal: Reports: difficulty swallowing Genitourinary: Reports: no symptoms Neurologic/Psychiatric: Reports: pre-existing deficit Endocrine: Reports: no symptoms Hematologic/Lymphatic: Reports: anemia Allergies: Coded Allergies: No Known Allergies (Unverified , 12/24/18) All Systems: reviewed and negative except above Subjective no events. seems less sob. no fever or chills. elevated sodium- improving. cxr worse from yesterday. Objective Last 24 Hour Vital Signs Date Time Temp Pulse Resp B/P (MAP) Pulse Ox O2 Delivery O2 Flow Rate FiO2 12/27/18 07:10 Venturi Mask 4.0 30 12/27/18 07:10 96 Venturi Mask 4.0 30 12/27/18 07:10 71 26 Venturi Mask 4.0 30 12/27/18 04:00 97.8 80 24 130/74 (92) 96 12/27/18 04:00 73 12/27/18 04:00 Venturi Mask Venturi Mask Venturi Mask 12/27/18 03:43 72 28 98 Venturi Mask 8.0 40 12/27/18 00:00 Venturi Mask Venturi Mask Venturi Mask 12/27/18 00:00 98.4 69 24 122/59 (80) 98 12/27/18 00:00 76 12/26/18 20:49 80 130/58 12/26/18 20:00 72 12/26/18 20:00 Venturi Mask Venturi Mask Venturi Mask 12/26/18 20:00 98.0 72 27 130/58 (82) 100 12/26/18 19:40 100 Venturi Mask 8.0 40 12/26/18 19:40 Venturi Mask 8.0 40 12/26/18 19:30 78 27 Venturi Mask 8.0 40 12/26/18 16:00 78 12/26/18 16:00 98.4 76 27 121/62 (81) 100 12/26/18 16:00 Venturi Mask Venturi Mask Venturi Mask 12/26/18 12:00 83 12/26/18 12:00 97.9 77 28 103/58 (73) 100 12/26/18 12:00 Venturi Mask Venturi Mask Venturi Mask 12/26/18 08:53 80 120/56 Intake and Output 12/26/18 12/27/18 19:00 07:00 Intake Total 1512.500 ml 1847.95 ml Output Total 500 ml 200 ml Balance 1012.500 ml 1647.95 ml Free Water 100 ml 80 ml IV Total 1052.500 ml 1407.95 ml Tube Feeding 360 ml 360 ml Output Urine Total 500 ml 200 ml # Bowel Movements 4 Laboratory Tests 12/26/18 08:45: White Blood Count 8.5, Red Blood Count 2.65L, Hemoglobin 8.2L, Hematocrit 25.7L , Mean Corpuscular Volume 97, Mean Corpuscular Hemoglobin 30.8, Mean Corpuscular Hemoglobin Concent 31.8L, Red Cell Distribution Width 16.2H, Platelet Count 155, Mean Platelet Volume 9.1, Neutrophils (%) (Auto) 80.2H, Lymphocytes (%) (Auto) 10.3L, Monocytes (%) (Auto) 4.5, Eosinophils (%) (Auto) 4.4H, Basophils (%) (Auto) 0.6, Iron Level 36L, Total Iron Binding Capacity 159L , Percent Iron Saturation 23, Unsaturated Iron Binding 123 12/26/18 10:09: Arterial Blood pH 7.453H, Arterial Blood Partial Pressure CO2 39.9, Arterial Blood Partial Pressure O2 85.1, Arterial Blood HCO3 27.3H, Arterial Blood Oxygen Saturation 95.8, Arterial Blood Base Excess 3.1H, Brennon Test Positive 12/26/18 17:00: Stool Occult Blood [Pending] 12/27/18 03:40: White Blood Count 7.9, Red Blood Count 2.69L, Hemoglobin 8.1L, Hematocrit 25.9L , Mean Corpuscular Volume 96, Mean Corpuscular Hemoglobin 30.1, Mean Corpuscular Hemoglobin Concent 31.3L, Red Cell Distribution Width 15.6H, Platelet Count 187, Mean Platelet Volume 8.9, Neutrophils (%) (Auto) 73.7, Lymphocytes (%) (Auto) 14.7L, Monocytes (%) (Auto) 4.5, Eosinophils (%) (Auto) 6.7H, Basophils (%) (Auto) 0.5, Sodium Level 152H, Potassium Level 3.8, Chloride Level 119H, Carbon Dioxide Level 26, Anion Gap 7, Blood Urea Nitrogen 20H, Creatinine 0.6, Estimat Glomerular Filtration Rate , Glucose Level 110H, Calcium Level 8.0L, Phosphorus Level 2.7, Magnesium Level 2.7H, Total Bilirubin 0.5, Aspartate Amino Transf (AST/SGOT) 24, Alanine Aminotransferase (ALT/SGPT) 14, Alkaline Phosphatase 48, Total Protein 5.8L, Albumin 1.9L, Globulin 3.9, Albumin/Globulin Ratio 0.5L Height (Feet): 5 Height (Inches): 2.00 Weight (Pounds): 138 Objective General Appearance: WD/WN, no apparent distress, confused Cardiovascular: regular rhythm Respiratory/Chest: chest wall non-tender, lungs clear, normal breath sounds Abdomen: normal bowel sounds, non tender, soft, no organomegaly Edema: no edema noted Arm (L), no edema noted Arm (R), no edema noted Leg (L), no edema noted Leg (R), no edema noted Pedal (L), no edema noted Pedal (R), no edema noted Generalized Neurologic: disoriented, unresponsive, aphasia Pablo Oconnell MD Dec 27, 2018 08:42
[2018-12-27] MEDS: Metoprolol Tartrate 50mg tab GT SCH ×2 (08:43→20:56)
--- NOTE | 2018-12-27 10:32 | Infectious Diseases Prog Note ---
"Assessment/Plan Assessment/Plan antibiotics : vancomycin iv, zosyn A 1. staph aureus | gram negative pneumonia 2. viridans streptococcus UTI 3. leucocytosis resolved 4. + blood cultures with coag neg staph likely contaminated 5. diabetes mellitus 6. hypertension P 1. continue iv vancomycin, zosyn 2. will follow up cultures Subjective ROS Limited/Unobtainable: Yes Allergies: Coded Allergies: No Known Allergies (Unverified , 12/24/18) Objective Vital Signs Last 24 Hour Vital Signs Date Time Temp Pulse Resp B/P (MAP) Pulse Ox O2 Delivery O2 Flow Rate FiO2 12/27/18 08:43 74 120/66 12/27/18 07:10 Venturi Mask 4.0 30 12/27/18 07:10 96 Venturi Mask 4.0 30 12/27/18 07:10 71 26 Venturi Mask 4.0 30 12/27/18 04:00 97.8 80 24 130/74 (92) 96 12/27/18 04:00 73 12/27/18 04:00 Venturi Mask Venturi Mask Venturi Mask 12/27/18 03:43 72 28 98 Venturi Mask 8.0 40 12/27/18 00:00 Venturi Mask Venturi Mask Venturi Mask 12/27/18 00:00 98.4 69 24 122/59 (80) 98 12/27/18 00:00 76 12/26/18 20:49 80 130/58 12/26/18 20:00 72 12/26/18 20:00 Venturi Mask Venturi Mask Venturi Mask 12/26/18 20:00 98.0 72 27 130/58 (82) 100 12/26/18 19:40 100 Venturi Mask 8.0 40 12/26/18 19:40 Venturi Mask 8.0 40 12/26/18 19:30 78 27 Venturi Mask 8.0 40 12/26/18 16:00 78 12/26/18 16:00 98.4 76 27 121/62 (81) 100 12/26/18 16:00 Venturi Mask Venturi Mask Venturi Mask 12/26/18 12:00 83 12/26/18 12:00 97.9 77 28 103/58 (73) 100 12/26/18 12:00 Venturi Mask Venturi Mask Venturi Mask Height (Feet): 5 Height (Inches): 2.00 Weight (Pounds): 138 Respiratory/Chest: lungs clear Cardiovascular: normal rate, regular rhythm, no gallop/murmur Abdomen: soft, non tender, other - GT Extremities: other - + edema Microbiology Date/Time Source Procedure Growth Status 12/25/18 13:25 Sputum Gram Stain - Final Resulted 12/25/18 13:25 Sputum Culture - Preliminary Staphylococcus Aureus Gram Negative Bacillus 1 Usual Respiratory Vilma Resulted Laboratory Tests Test 12/26/18 17:00 12/27/18 03:40 Stool Occult Blood Pending White Blood Count 7.9 K/UL (4.8-10.8) Red Blood Count 2.69 M/UL (4.20-5.40) L Hemoglobin 8.1 G/DL (12.0-16.0) L Hematocrit 25.9 % (37.0-47.0) L Mean Corpuscular Volume 96 FL (80-99) Mean Corpuscular Hemoglobin 30.1 PG (27.0-31.0) Mean Corpuscular Hemoglobin Concent 31.3 G/DL (32.0-36.0) L Red Cell Distribution Width 15.6 % (11.6-14.8) H Platelet Count 187 K/UL (150-450) Mean Platelet Volume 8.9 FL (6.5-10.1) Neutrophils (%) (Auto) 73.7 % (45.0-75.0) Lymphocytes (%) (Auto) 14.7 % (20.0-45.0) L Monocytes (%) (Auto) 4.5 % (1.0-10.0) Eosinophils (%) (Auto) 6.7 % (0.0-3.0) H Basophils (%) (Auto) 0.5 % (0.0-2.0) Sodium Level 152 MMOL/L (136-145) H Potassium Level 3.8 MMOL/L (3.5-5.1) Chloride Level 119 MMOL/L (98-107) H Carbon Dioxide Level 26 MMOL/L (21-32) Anion Gap 7 mmol/L (5-15) Blood Urea Nitrogen 20 mg/dL (7-18) H Creatinine 0.6 MG/DL (0.55-1.30) Estimat Glomerular Filtration Rate mL/min (>60) Glucose Level 110 MG/DL (74-106) H Calcium Level 8.0 MG/DL (8.5-10.1) L Phosphorus Level 2.7 MG/DL (2.5-4.9) Magnesium Level 2.7 MG/DL (1.8-2.4) H Total Bilirubin 0.5 MG/DL (0.2-1.0) Aspartate Amino Transf (AST/SGOT) 24 U/L (15-37) Alanine Aminotransferase (ALT/SGPT) 14 U/L (12-78) Alkaline Phosphatase 48 U/L (46-116) Total Protein 5.8 G/DL (6.4-8.2) L Albumin 1.9 G/DL (3.4-5.0) L Globulin 3.9 g/dL Albumin/Globulin Ratio 0.5 (1.0-2.7) L Current Medications Medications (Trade) Dose Ordered Sig/João Route PRN Reason Start Time Stop Time Status Last Admin Dose Admin Albuterol/ Ipratropium (Albuterol/ Ipratropium) 3 ml Q4H PRN HHN Shortness of Breath 12/24/18 10:00 12/29/18 09:59 12/27/18 03:39 Aspirin (ASA) 81 mg DAILY GT 12/24/18 10:00 01/23/19 09:59 12/27/18 08:36 Dextrose (Dextrose 50%) 25 ml Q30M PRN IV Hypoglycemia 12/25/18 16:30 01/24/19 16:29 Dextrose (Dextrose 50%) 50 ml Q30M PRN IV Hypoglycemia 12/25/18 16:30 01/24/19 16:29 Docusate Sodium (Colace) 100 mg DAILY GT 12/24/18 10:00 01/23/19 09:59 12/27/18 08:36 Heparin Sodium (Porcine) (Heparin 5000 units/ml) 5,000 units EVERY 12 HOURS SUBQ 12/24/18 21:00 01/23/19 20:59 12/27/18 08:42 Insulin Aspart (NovoLOG) Q6HR SUBQ 12/25/18 18:00 01/24/19 17:59 12/27/18 06:25 Insulin Human NPH (Humulin N) 12 units BIAC SUBQ 12/24/18 11:30 01/23/19 11:29 12/27/18 06:25 Metoprolol Tartrate (Lopressor) 50 mg EVERY 12 HOURS GT 12/24/18 10:00 01/23/19 09:59 12/27/18 08:43 Piperacillin Sod/ Tazobactam Sod 3.375 gm/Sodium Chloride 110 ml @ 27.5 mls/hr Q8H IVPB 12/25/18 20:00 01/01/19 19:59 12/27/18 04:37 Potassium Chloride 30 meq/ Dextrose 1,015 ml @ 125 mls/hr Q8H8M IV 12/26/18 22:00 01/25/19 21:59 12/26/18 23:34 Vancomycin HCl (Vanco rx to dose) 1 ea DAILY PRN MISC Per rx protocol 12/24/18 07:30 01/23/19 07:29 Vancomycin HCl 750 mg/Sodium Chloride 275 ml @ 183.333 mls/hr Q24H IVPB 12/26/18 11:00 12/30/18 10:59 12/26/18 11:41 Flavia Macdonald MD Dec 27, 2018 10:31"
[2018-12-27 12:00] VITALS: BP 120/70
[2018-12-27] MEDS ORDERED: Vancomycin 1.25gm Premix IVPB SCH ×2 (13:00→14:00)
[2018-12-27 16:00] VITALS: BP 139/53
[2018-12-27 20:00] VITALS: BP 106/54
--- NOTE | 2018-12-27 20:16 | Consultation ---
DATE OF CONSULTATION: 12/27/2018 CONSULTING PHYSICIAN: Rashad Wilson M.D. REFERRING PHYSICIAN: Pablo Oconnell M.D. REASON FOR CONSULTATION: Hypernatremia and electrolyte imbalance. HISTORY OF PRESENT ILLNESS: The patient is an 88-year-old lady, who is a resident of [facility], unable to give a history. She presents with leukocytosis, shortness of breath, and hypernatremia. The patient has gastrostomy feedings, history of diabetes, CVA, and hypertension. [facility]ICATIONS: [facility]: She gets tube feedings, Colace 100 mg 2 tablets daily, metoprolol 75 mg b.i.d., Norvasc 5 mg b.i.d., aspirin 81 mg daily, Lipitor 10 mg daily, and NPH 12 units b.i.d. PAST HISTORY/REVIEW OF SYSTEMS: The patient is unable. Major medical problems as above. PHYSICAL EXAMINATION: GENERAL: The patient is lying in bed, wearing an oxygen mask. Has intravenous. 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 VITAL SIGNS: Temperature 97.4, pulse 71, respirations 25, and blood pressure 120/66. HEENT: Sclerae are nonicteric. Ocular motions intact in all directions. Oral mucosa slightly dry. NECK: No adenopathy. LUNGS: Few faint rhonchi. HEART: Rhythm is regular. I hear no murmur. ABDOMEN: Soft. I am unable to feel liver or spleen. There is a gastrostomy tube. EXTREMITIES: Show 1+ to 2+ edema. NEUROLOGIC: The patient is very lethargic and not caring out a conversation. There is no obvious facial asymmetry. Ocular motions intact. There is a paucity of motion in all extremities. PERTINENT LABORATORY DATA: On 12/24/2018, sodium 156, potassium 3.3, BUN 125, and creatinine is 1.2 with a glucose of 137. Lactic acid 2.7 and total CK was 76. BNP 2146. Albumin 2.9. After hydration today, sodium 152, potassium 3.8, BUN 20, and creatinine 0.6. The calcium 8, phosphorus 2.7, magnesium 2.7, and the albumin is 1.9. Chest x-ray shows infiltrate and/or edema. Urine culture shows strep viridans and blood culture showed coag-negative staphylococci. IMPRESSION: 1. Acute kidney injury likely secondary to dehydration. 2. Hypernatremia secondary to dehydration. 3. Edema from severe malnutrition and hypoalbuminemia. 4. Possible pneumonia. 5. Possible congestive heart failure. 6. Diabetes. PLAN: At this time, I would continue gradual correction of sodium to prevent cerebral edema with hypotonic intravenous fluids and Lasix as needed to control the congestive heart failure. We will also give free water via the gastrostomy. She has been for antibiotics for pneumonia and possible sepsis. The patient has multiple comorbidities. Also note, the urine protein 2+ could indicate nephrotic syndrome. We will get a 24-hour urine to quantify. Rashad Wilson M.D. DR: WILL JOB#: [id number] CC:
[2018-12-28] VITALS: BP 124/60
[2018-12-28 04:00] VITALS: BP 144/54
[2018-12-28 05:32] LABS: HEMATOCRIT 23.8 % (37.0-47.0); HEMOGLOBIN 7.9 G/DL (12.0-16.0); MEAN CORPUSCULAR VOLUME 94 FL (80-99); PLATELET COUNT 197 K/UL (150-450); RED BLOOD COUNT 2.53 M/UL (4.20-5.40); RED CELL DISTRIBUTION WIDTH 15.2 % (11.6-14.8); WHITE BLOOD COUNT 9.1 K/UL (4.8-10.8)
[2018-12-28] MEDS: Piperacillin/Tazobactam 3.375 GM in NS 110 ML IVPB SCH (05:55)
[2018-12-28] MEDS: NovoLOG Insulin Flexpen SUBQ SCH ×4 (05:57→23:47)
[2018-12-28] MEDS: Insulin NPH SUBQ SCH ×2 (05:59→16:30)
[2018-12-28 06:12] LABS: ALANINE AMINOTRANSFERASE 20 U/L (12-78); ALBUMIN 2.1 G/DL (3.4-5.0); ALBUMIN/GLOBULIN RATIO 0.6 (1.0-2.7); ALKALINE PHOSPHATASE 44 U/L (46-116); ANION GAP 9 mmol/L (5-15); ASPARTATE AMINO TRANSFERASE 32 U/L (15-37); BILIRUBIN,TOTAL 0.5 MG/DL (0.2-1.0); BLOOD UREA NITROGEN 15 mg/dL (7-18); CALCIUM 8.2 MG/DL (8.5-10.1); CARBON DIOXIDE 25 MMOL/L (21-32); CHLORIDE 111 MMOL/L (98-107); CREATININE 0.6 MG/DL (0.55-1.30); POTASSIUM 4.8 MMOL/L (3.5-5.1); SODIUM 145 MMOL/L (136-145)
--- NOTE | 2018-12-28 07:33 | Nephrology Progress Note ---
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 (2) Proteinuria (3) Dehydration (4) JOHN (acute kidney injury) (5) PNA (pneumonia) (6) Respiratory distress (7) Sepsis (8) Hypernatremia Plan check 24 hr urine protein and creatinine clearance, free water via GT, reduce iv rate Subjective ROS Limited/Unobtainable: Yes Objective Objective Last 24 Hour Vital Signs Date Time Temp Pulse Resp B/P (MAP) Pulse Ox O2 Delivery O2 Flow Rate FiO2 12/28/18 07:13 77 20 Nasal Cannula 3.0 32 12/28/18 07:12 Nasal Cannula 3.0 32 12/28/18 07:12 99 Nasal Cannula 3.0 32 12/28/18 04:00 Venturi Mask Venturi Mask Venturi Mask 12/28/18 04:00 97.7 78 24 144/54 (84) 95 12/28/18 04:00 74 12/28/18 00:00 98.2 80 24 124/60 (81) 98 12/28/18 00:00 81 12/28/18 00:00 Venturi Mask Venturi Mask Venturi Mask 12/27/18 20:56 68 106/54 12/27/18 20:00 98.2 70 24 106/54 (71) 99 12/27/18 20:00 77 12/27/18 20:00 Venturi Mask Venturi Mask Venturi Mask 12/27/18 20:00 Venturi Mask Venturi Mask Venturi Mask 12/27/18 16:00 98.4 80 20 139/53 (81) 97 12/27/18 15:30 Venturi Mask Venturi Mask Venturi Mask 12/27/18 15:22 69 12/27/18 12:00 Venturi Mask Venturi Mask Venturi Mask 12/27/18 12:00 97.4 71 25 120/70 (87) 99 12/27/18 11:48 69 12/27/18 08:43 74 120/66 12/27/18 08:00 Venturi Mask Venturi Mask Venturi Mask 12/27/18 08:00 97.7 79 21 112/63 (79) 98 Intake and Output 12/27/18 12/28/18 19:00 07:00 Intake Total 2436.250 ml 1802.5 ml Output Total 3200 ml 600 ml Balance -763.750 ml 1202.5 ml Free Water 100 ml 50 ml IV Total 1926.250 ml 1422.5 ml Tube Feeding 360 ml 330 ml Other 50 ml Output Urine Total 3200 ml 600 ml # Bowel Movements 1 1 Laboratory Tests 12/27/18 10:00: Vancomycin Level Trough 7.5 12/28/18 02:55: White Blood Count 9.1, Red Blood Count 2.53L, Hemoglobin 7.9L, Hematocrit 23.8L , Mean Corpuscular Volume 94, Mean Corpuscular Hemoglobin 31.1H, Mean Corpuscular Hemoglobin Concent 33.0, Red Cell Distribution Width 15.2H, Platelet Count 197, Mean Platelet Volume 7.8, Neutrophils (%) (Auto) , Lymphocytes (%) (Auto) , Monocytes (%) (Auto) , Eosinophils (%) (Auto) , Basophils (%) (Auto) , Neutrophils % (Manual) [Pending], Lymphocytes % (Manual) [Pending], Platelet Estimate [Pending], Platelet Morphology [Pending], Sodium Level 145, Potassium Level 4.8, Chloride Level 111H, Carbon Dioxide Level 25, Anion Gap 9, Blood Urea Nitrogen 15, Creatinine 0.6, Estimat Glomerular Filtration Rate , Glucose Level 115H, Calcium Level 8.2L, Total Bilirubin 0.5, Aspartate Amino Transf (AST/SGOT) 32, Alanine Aminotransferase (ALT/SGPT) 20, Alkaline Phosphatase 44L, Total Protein 5.5L, Albumin 2.1L, Globulin 3.4, Albumin/Globulin Ratio 0.6L Height (Feet): 5 Height (Inches): 2.00 Weight (Pounds): 138 General Appearance: lethargic EENT: normal ENT inspection Neck: non-tender Cardiovascular: normal rate, regular rhythm Respiratory/Chest: rhonchi - bilaterally Abdomen: soft Extremities: moderate edema Neurologic: disoriented Rashad Wilson MD Dec 28, 2018 07:33
[2018-12-28 08:00] VITALS: BP 114/68
[2018-12-28] MEDS: Docusate 100mg/10ml Liq GT SCH (08:39)
[2018-12-28] MEDS: Metoprolol Tartrate 50mg tab GT SCH ×2 (08:40→21:07)
[2018-12-28] MEDS: Aspirin Baby 81mg GT SCH (08:40)
[2018-12-28] MEDS: Heparin 5000 units/ml inj SUBQ SCH ×2 (08:42→21:08)
--- NOTE | 2018-12-28 10:33 | Infectious Diseases Prog Note ---
"Assessment/Plan Assessment/Plan antibiotics : vancomycin iv, zosyn A 1. staph aureus | citrobacter pneumonia 2. viridans streptococcus UTI 3. leucocytosis resolved 4. + blood cultures with coag neg staph likely contaminated 5. diabetes mellitus 6. hypertension P 1. d/c iv vancomycin, zosyn 2. start ancef 3. will follow up cultures Subjective ROS Limited/Unobtainable: Yes Allergies: Coded Allergies: No Known Allergies (Unverified , 12/24/18) Objective Vital Signs Last 24 Hour Vital Signs Date Time Temp Pulse Resp B/P (MAP) Pulse Ox O2 Delivery O2 Flow Rate FiO2 12/28/18 08:40 85 114/68 12/28/18 08:00 Venturi Mask Venturi Mask Venturi Mask 12/28/18 08:00 82 12/28/18 08:00 98.1 85 20 114/68 (83) 98 12/28/18 07:13 77 20 Nasal Cannula 3.0 32 12/28/18 07:12 Nasal Cannula 3.0 32 12/28/18 07:12 99 Nasal Cannula 3.0 32 12/28/18 04:00 Venturi Mask Venturi Mask Venturi Mask 12/28/18 04:00 97.7 78 24 144/54 (84) 95 12/28/18 04:00 74 12/28/18 00:00 98.2 80 24 124/60 (81) 98 12/28/18 00:00 81 12/28/18 00:00 Venturi Mask Venturi Mask Venturi Mask 12/27/18 20:56 68 106/54 12/27/18 20:00 98.2 70 24 106/54 (71) 99 12/27/18 20:00 77 12/27/18 20:00 Venturi Mask Venturi Mask Venturi Mask 12/27/18 20:00 Venturi Mask Venturi Mask Venturi Mask 12/27/18 16:00 98.4 80 20 139/53 (81) 97 12/27/18 15:30 Venturi Mask Venturi Mask Venturi Mask 12/27/18 15:22 69 12/27/18 12:00 Venturi Mask Venturi Mask Venturi Mask 12/27/18 12:00 97.4 71 25 120/70 (87) 99 12/27/18 11:48 69 Height (Feet): 5 Height (Inches): 2.00 Weight (Pounds): 138 Respiratory/Chest: lungs clear Cardiovascular: normal rate, regular rhythm, no gallop/murmur Abdomen: soft, non tender, other - GT Extremities: other - + edema Microbiology Date/Time Source Procedure Growth Status 12/25/18 13:25 Sputum Gram Stain - Final Complete 12/25/18 13:25 Sputum Culture - Final Staphylococcus Aureus Citrobacter Koseri Usual Respiratory Vilma Complete Laboratory Tests Test 12/28/18 02:55 White Blood Count 9.1 K/UL (4.8-10.8) Red Blood Count 2.53 M/UL (4.20-5.40) L Hemoglobin 7.9 G/DL (12.0-16.0) L Hematocrit 23.8 % (37.0-47.0) L Mean Corpuscular Volume 94 FL (80-99) Mean Corpuscular Hemoglobin 31.1 PG (27.0-31.0) H Mean Corpuscular Hemoglobin Concent 33.0 G/DL (32.0-36.0) Red Cell Distribution Width 15.2 % (11.6-14.8) H Platelet Count 197 K/UL (150-450) Mean Platelet Volume 7.8 FL (6.5-10.1) Neutrophils (%) (Auto) % (45.0-75.0) Lymphocytes (%) (Auto) % (20.0-45.0) Monocytes (%) (Auto) % (1.0-10.0) Eosinophils (%) (Auto) % (0.0-3.0) Basophils (%) (Auto) % (0.0-2.0) Differential Total Cells Counted 100 Neutrophils % (Manual) 75 % (45-75) Lymphocytes % (Manual) 16 % (20-45) L Monocytes % (Manual) 1 % (1-10) Eosinophils % (Manual) 8 % (0-3) H Basophils % (Manual) 0 % (0-2) Band Neutrophils 0 % (0-8) Platelet Estimate Adequate Platelet Morphology Normal Anisocytosis 1+ Sodium Level 145 MMOL/L (136-145) Potassium Level 4.8 MMOL/L (3.5-5.1) Chloride Level 111 MMOL/L (98-107) H Carbon Dioxide Level 25 MMOL/L (21-32) Anion Gap 9 mmol/L (5-15) Blood Urea Nitrogen 15 mg/dL (7-18) Creatinine 0.6 MG/DL (0.55-1.30) Estimat Glomerular Filtration Rate mL/min (>60) Glucose Level 115 MG/DL (74-106) H Calcium Level 8.2 MG/DL (8.5-10.1) L Total Bilirubin 0.5 MG/DL (0.2-1.0) Aspartate Amino Transf (AST/SGOT) 32 U/L (15-37) Alanine Aminotransferase (ALT/SGPT) 20 U/L (12-78) Alkaline Phosphatase 44 U/L (46-116) L Total Protein 5.5 G/DL (6.4-8.2) L Albumin 2.1 G/DL (3.4-5.0) L Globulin 3.4 g/dL Albumin/Globulin Ratio 0.6 (1.0-2.7) L Current Medications Medications (Trade) Dose Ordered Sig/João Route PRN Reason Start Time Stop Time Status Last Admin Dose Admin Albuterol/ Ipratropium (Albuterol/ Ipratropium) 3 ml Q4H PRN HHN Shortness of Breath 12/24/18 10:00 12/29/18 09:59 12/27/18 03:39 Aspirin (ASA) 81 mg DAILY GT 12/24/18 10:00 01/23/19 09:59 12/28/18 08:40 Dextrose (Dextrose 50%) 25 ml Q30M PRN IV Hypoglycemia 12/25/18 16:30 01/24/19 16:29 Dextrose (Dextrose 50%) 50 ml Q30M PRN IV Hypoglycemia 12/25/18 16:30 01/24/19 16:29 Docusate Sodium (Colace) 100 mg DAILY GT 12/24/18 10:00 01/23/19 09:59 12/28/18 08:39 Heparin Sodium (Porcine) (Heparin 5000 units/ml) 5,000 units EVERY 12 HOURS SUBQ 12/24/18 21:00 01/23/19 20:59 12/28/18 08:42 Insulin Aspart (NovoLOG) Q6HR SUBQ 12/25/18 18:00 01/24/19 17:59 12/28/18 05:57 Insulin Human NPH (Humulin N) 12 units BIAC SUBQ 12/24/18 11:30 01/23/19 11:29 12/28/18 05:59 Metoprolol Tartrate (Lopressor) 50 mg EVERY 12 HOURS GT 12/24/18 10:00 01/23/19 09:59 12/28/18 08:40 Piperacillin Sod/ Tazobactam Sod 3.375 gm/Sodium Chloride 110 ml @ 27.5 mls/hr Q8HR IVPB 12/27/18 14:00 01/03/19 13:59 12/28/18 05:55 Potassium Chloride 30 meq/ Dextrose 1,015 ml @ 35 mls/hr Q24H IV 12/28/18 09:30 01/27/19 09:29 12/28/18 08:40 Potassium Chloride (K-Dur) 40 meq TWICE A DAY GT 12/27/18 14:15 01/26/19 14:14 12/28/18 08:39 Vancomycin HCl (Vanco rx to dose) 1 ea DAILY PRN MISC Per rx protocol 12/24/18 07:30 01/23/19 07:29 Vancomycin HCl/ Dextrose 275 ml @ 183.333 mls/hr Q24H IVPB 12/27/18 14:00 01/01/19 13:59 12/27/18 14:41 Flavia Macdonald MD Dec 28, 2018 10:33"
[2018-12-28 12:00] VITALS: BP 121/63
[2018-12-28] MEDS ORDERED: ceFAZolin sod 2 GM in D5W 110 ML IVPB SCH (12:30)
[2018-12-28] MEDS: ceFAZolin 2gm/50ml Premix 50 ML IV SCH ×2 (13:00→21:36)
[2018-12-28] MEDS ORDERED: Tubing IV Secondary IV ONE (15:39)
[2018-12-28] MEDS ORDERED: 1/2 NS 1000ml IV ONE (15:39)
[2018-12-28 15:41] VITALS: BP 112/56
--- NOTE | 2018-12-28 16:17 | General Progress Note ---
Assessment/Plan Problem List: (1) Sepsis ICD Codes: A41.9 - Sepsis, unspecified organism SNOMED: 75672965 (2) PNA (pneumonia) ICD Codes: J18.9 - Pneumonia, unspecified organism SNOMED: 335563923 (3) AMI (acute myocardial infarction) ICD Codes: I21.9 - Acute myocardial infarction, unspecified SNOMED: 80789777 (4) Dyspnea ICD Codes: R06.00 - Dyspnea, unspecified SNOMED: 750006284 (5) Respiratory distress ICD Codes: R06.03 - Acute respiratory distress SNOMED: 077497871 (6) Shortness of breath ICD Codes: R06.02 - Shortness of breath SNOMED: 654590551 Status: stable, progressing Assessment/Plan cont current rx iv abx per id follow up culttures monitor cxr check duplex monitor bmp dvt/stress ulcer prophylaxis skin care antiplt poor prognosis Subjective ROS Limited/Unobtainable: Yes Constitutional: Reports: malaise, weakness HEENT: Reports: no symptoms Cardiovascular: Reports: no symptoms Respiratory: Reports: cough, shortness of breath Gastrointestinal/Abdominal: Reports: no symptoms Genitourinary: Reports: no symptoms Neurologic/Psychiatric: Reports: pre-existing deficit Endocrine: Reports: no symptoms Hematologic/Lymphatic: Reports: no symptoms Allergies: Coded Allergies: No Known Allergies (Unverified , 12/24/18) All Systems: reviewed and negative except above Subjective no events. seems less sob. no fever or chills. elevated sodium- improving. still with significant sob. on venti mask. Objective Last 24 Hour Vital Signs Date Time Temp Pulse Resp B/P (MAP) Pulse Ox O2 Delivery O2 Flow Rate FiO2 12/28/18 15:41 97.5 77 20 112/56 (74) 99 12/28/18 12:00 66 12/28/18 12:00 97.9 71 20 121/63 (82) 99 12/28/18 12:00 Venturi Mask Venturi Mask Venturi Mask 12/28/18 08:40 85 114/68 12/28/18 08:00 Venturi Mask Venturi Mask Venturi Mask 12/28/18 08:00 82 12/28/18 08:00 98.1 85 20 114/68 (83) 98 12/28/18 07:13 77 20 Nasal Cannula 3.0 32 12/28/18 07:12 Nasal Cannula 3.0 32 12/28/18 07:12 99 Nasal Cannula 3.0 32 12/28/18 04:00 Venturi Mask Venturi Mask Venturi Mask 12/28/18 04:00 97.7 78 24 144/54 (84) 95 12/28/18 04:00 74 12/28/18 00:00 98.2 80 24 124/60 (81) 98 12/28/18 00:00 81 12/28/18 00:00 Venturi Mask Venturi Mask Venturi Mask 12/27/18 20:56 68 106/54 12/27/18 20:00 98.2 70 24 106/54 (71) 99 12/27/18 20:00 77 12/27/18 20:00 Venturi Mask Venturi Mask Venturi Mask 12/27/18 20:00 Venturi Mask Venturi Mask Venturi Mask Intake and Output 12/27/18 12/28/18 19:00 07:00 Intake Total 2436.250 ml 1802.5 ml Output Total 3200 ml 600 ml Balance -763.750 ml 1202.5 ml Free Water 100 ml 50 ml IV Total 1926.250 ml 1422.5 ml Tube Feeding 360 ml 330 ml Other 50 ml Output Urine Total 3200 ml 600 ml # Bowel Movements 1 1 Laboratory Tests 12/28/18 02:55: White Blood Count 9.1, Red Blood Count 2.53L, Hemoglobin 7.9L, Hematocrit 23.8L , Mean Corpuscular Volume 94, Mean Corpuscular Hemoglobin 31.1H, Mean Corpuscular Hemoglobin Concent 33.0, Red Cell Distribution Width 15.2H, Platelet Count 197, Mean Platelet Volume 7.8, Neutrophils (%) (Auto) , Lymphocytes (%) (Auto) , Monocytes (%) (Auto) , Eosinophils (%) (Auto) , Basophils (%) (Auto) , Differential Total Cells Counted 100, Neutrophils % ( Manual) 75, Lymphocytes % (Manual) 16L, Monocytes % (Manual) 1, Eosinophils % ( Manual) 8H, Basophils % (Manual) 0, Band Neutrophils 0, Platelet Estimate Adequate, Platelet Morphology Normal, Anisocytosis 1+, Sodium Level 145, Potassium Level 4.8, Chloride Level 111H, Carbon Dioxide Level 25, Anion Gap 9, Blood Urea Nitrogen 15, Creatinine 0.6, Estimat Glomerular Filtration Rate , Glucose Level 115H, Calcium Level 8.2L, Total Bilirubin 0.5, Aspartate Amino Transf (AST/SGOT) 32, Alanine Aminotransferase (ALT/SGPT) 20, Alkaline Phosphatase 44L, Total Protein 5.5L, Albumin 2.1L, Globulin 3.4, Albumin/ Globulin Ratio 0.6L Height (Feet): 5 Height (Inches): 2.00 Weight (Pounds): 138 Objective General Appearance: WD/WN, no apparent distress, confused Cardiovascular: regular rhythm Respiratory/Chest: chest wall non-tender, lungs clear, normal breath sounds Abdomen: normal bowel sounds, non tender, soft, no organomegaly Edema: no edema noted Arm (L), no edema noted Arm (R), no edema noted Leg (L), no edema noted Leg (R), no edema noted Pedal (L), no edema noted Pedal (R), no edema noted Generalized Neurologic: disoriented, unresponsive, aphasia Pablo Oconnell MD Dec 28, 2018 16:17
[2018-12-28 17:29] LABS: CREATININE 0.6 MG/DL (0.55-1.30)
[2018-12-28 20:00] VITALS: BP 130/74
[2018-12-29] VITALS: BP 134/77
[2018-12-29 04:00] VITALS: BP 110/66
[2018-12-29] MEDS: ceFAZolin 2gm/50ml Premix 50 ML IV SCH ×3 (05:30→21:52)
[2018-12-29] MEDS: NovoLOG Insulin Flexpen SUBQ SCH ×3 (06:00→17:56)
[2018-12-29] MEDS: Insulin NPH SUBQ SCH ×2 (06:01→18:01)
[2018-12-29 06:31] LABS: ANION GAP 8 mmol/L (5-15); BLOOD UREA NITROGEN 13 mg/dL (7-18); CALCIUM 9.6 MG/DL (8.5-10.1); CARBON DIOXIDE 26 MMOL/L (21-32); CHLORIDE 110 MMOL/L (98-107); CREATININE 0.6 MG/DL (0.55-1.30); POTASSIUM 4.9 MMOL/L (3.5-5.1); SODIUM 143 MMOL/L (136-145)
[2018-12-29 08:00] VITALS: BP 121/67
[2018-12-29] MEDS: Docusate 100mg/10ml Liq GT SCH (09:48)
[2018-12-29] MEDS: Metoprolol Tartrate 50mg tab GT SCH ×2 (09:50→21:52)
[2018-12-29] MEDS: Aspirin Baby 81mg GT SCH (09:51)
[2018-12-29] MEDS: Heparin 5000 units/ml inj SUBQ SCH ×2 (09:51→21:54)
--- NOTE | 2018-12-29 10:40 | Diagnostic Imaging Report ---
EXAM: XR Chest, 1 View CLINICAL HISTORY: SOB TECHNIQUE: Frontal view of the chest. COMPARISON: Chest x-ray, 12/26/18 819 FINDINGS: Lungs: Improved right perihilar airspace disease. Mild bibasilar atelectasis/airspace opacities. Pleural space: Probable small pleural effusions. No pneumothorax. Heart: Cardiomegaly. Mediastinum: Interval widening appearance of the mediastinum. Bones/joints: Unremarkable. IMPRESSION: 1. Interval widening appearance of the mediastinum. Consider CT. 2. Improved right perihilar airspace disease. Mild bibasilar atelectasis/airspace opacities. 3. Probable small pleural effusions. <MYCVCSECTION> Critical Value Communications 12/29/18 10:43 Call Nurse Efren Ibrahim on 12/29 10:42 (-08:00)
--- NOTE | 2018-12-29 10:48 | Nephrology Progress Note ---
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 (2) Proteinuria (3) Dehydration (4) JOHN (acute kidney injury) (5) PNA (pneumonia) (6) Respiratory distress (7) Sepsis (8) Hypernatremia Plan check 24 hr urine protein 20 and creatinine clearance 67 , free water via GT, dc iv , low albumin from malnutrition Subjective ROS Limited/Unobtainable: Yes Objective Objective Last 24 Hour Vital Signs Date Time Temp Pulse Resp B/P (MAP) Pulse Ox O2 Delivery O2 Flow Rate FiO2 12/29/18 10:36 100 Nasal Cannula 3.0 32 12/29/18 10:36 Nasal Cannula 3.0 32 12/29/18 10:36 82 20 Nasal Cannula 3.0 32 12/29/18 09:50 96 121/67 12/29/18 08:00 97.9 96 22 121/67 (85) 98 12/29/18 07:50 92 12/29/18 04:00 97.0 77 18 110/66 (81) 100 12/29/18 04:00 Nasal Cannula 2.0 Nasal Cannula 2.0 Nasal Cannula 2.0 12/29/18 03:44 75 12/29/18 00:00 Nasal Cannula 2.0 Nasal Cannula 2.0 Nasal Cannula 2.0 12/29/18 00:00 97.2 71 24 134/77 (96) 99 12/28/18 23:39 71 12/28/18 21:07 93 132/72 12/28/18 20:38 81 20 Nasal Cannula 3.0 32 12/28/18 20:38 Nasal Cannula 3.0 32 12/28/18 20:38 98 Nasal Cannula 3.0 32 12/28/18 20:00 Nasal Cannula 2.0 Nasal Cannula 2.0 Nasal Cannula 2.0 12/28/18 20:00 97.5 94 24 130/74 (92) 99 12/28/18 19:17 80 12/28/18 16:00 Venturi Mask Venturi Mask Venturi Mask 12/28/18 16:00 67 12/28/18 15:41 97.5 77 20 112/56 (74) 99 12/28/18 12:00 66 12/28/18 12:00 97.9 71 20 121/63 (82) 99 12/28/18 12:00 Venturi Mask Venturi Mask Venturi Mask Intake and Output 3/8/19 3/9/19 19:00 07:00 Intake Total 1110 ml 1480 ml Output Total 900 ml 2000 ml Balance 210 ml -520 ml Free Water 750 ml 400 ml IV Total 520 ml Tube Feeding 360 ml 360 ml Other 200 ml Output Urine Total 900 ml 2000 ml # Bowel Movements 1 2 Laboratory Tests 12/29/18 04:15: Sodium Level 143, Potassium Level 4.9, Chloride Level 110H, Carbon Dioxide Level 26, Anion Gap 8, Blood Urea Nitrogen 13, Creatinine 0.6, Estimat Glomerular Filtration Rate , Glucose Level 99, Calcium Level 9.6, Pro-B-Type Natriuretic Peptide 1752H Height (Feet): 5 Height (Inches): 2.00 Weight (Pounds): 138 General Appearance: no apparent distress, lethargic EENT: normal ENT inspection Neck: normal alignment Cardiovascular: normal rate Respiratory/Chest: lungs clear Abdomen: non tender, soft Extremities: trace edema Rashad Wilson MD Dec 29, 2018 10:48
--- NOTE | 2018-12-29 11:28 | General Progress Note ---
Assessment/Plan Problem List: (1) Sepsis ICD Codes: A41.9 - Sepsis, unspecified organism SNOMED: 04603490 (2) PNA (pneumonia) ICD Codes: J18.9 - Pneumonia, unspecified organism SNOMED: 479072808 (3) AMI (acute myocardial infarction) ICD Codes: I21.9 - Acute myocardial infarction, unspecified SNOMED: 45502689 (4) Dyspnea ICD Codes: R06.00 - Dyspnea, unspecified SNOMED: 632585324 (5) Respiratory distress ICD Codes: R06.03 - Acute respiratory distress SNOMED: 796138521 (6) Shortness of breath ICD Codes: R06.02 - Shortness of breath SNOMED: 194012051 Status: stable, progressing Assessment/Plan cont current rx iv abx per id follow up culttures monitor cxr check duplex monitor bmp dvt/stress ulcer prophylaxis skin care antiplt poor prognosis Subjective ROS Limited/Unobtainable: No Constitutional: Reports: malaise, weakness HEENT: Reports: no symptoms Cardiovascular: Reports: no symptoms Respiratory: Reports: cough, shortness of breath Gastrointestinal/Abdominal: Reports: difficulty swallowing Genitourinary: Reports: no symptoms Neurologic/Psychiatric: Reports: pre-existing deficit Endocrine: Reports: no symptoms Hematologic/Lymphatic: Reports: anemia Allergies: Coded Allergies: No Known Allergies (Unverified , 12/24/18) All Systems: reviewed and negative except above Subjective no events. seems less sob. no fever or chills. elevated sodium- improving. sob better. decreased o2 requirements. on nasal cannula Objective Last 24 Hour Vital Signs Date Time Temp Pulse Resp B/P (MAP) Pulse Ox O2 Delivery O2 Flow Rate FiO2 12/29/18 10:36 100 Nasal Cannula 3.0 32 12/29/18 10:36 Nasal Cannula 3.0 32 12/29/18 10:36 82 20 Nasal Cannula 3.0 32 12/29/18 09:50 96 121/67 12/29/18 08:00 Nasal Cannula 2.0 Nasal Cannula 2.0 Nasal Cannula 2.0 12/29/18 08:00 97.9 96 22 121/67 (85) 98 12/29/18 07:50 92 12/29/18 04:00 97.0 77 18 110/66 (81) 100 12/29/18 04:00 Nasal Cannula 2.0 Nasal Cannula 2.0 Nasal Cannula 2.0 12/29/18 03:44 75 12/29/18 00:00 Nasal Cannula 2.0 Nasal Cannula 2.0 Nasal Cannula 2.0 12/29/18 00:00 97.2 71 24 134/77 (96) 99 12/28/18 23:39 71 12/28/18 21:07 93 132/72 12/28/18 20:38 81 20 Nasal Cannula 3.0 32 12/28/18 20:38 Nasal Cannula 3.0 32 12/28/18 20:38 98 Nasal Cannula 3.0 32 12/28/18 20:00 Nasal Cannula 2.0 Nasal Cannula 2.0 Nasal Cannula 2.0 12/28/18 20:00 97.5 94 24 130/74 (92) 99 12/28/18 19:17 80 12/28/18 16:00 Venturi Mask Venturi Mask Venturi Mask 12/28/18 16:00 67 12/28/18 15:41 97.5 77 20 112/56 (74) 99 12/28/18 12:00 66 12/28/18 12:00 97.9 71 20 121/63 (82) 99 12/28/18 12:00 Venturi Mask Venturi Mask Venturi Mask Intake and Output 12/28/18 12/29/18 19:00 07:00 Intake Total 1110 ml 1480 ml Output Total 900 ml 2000 ml Balance 210 ml -520 ml Free Water 750 ml 400 ml IV Total 520 ml Tube Feeding 360 ml 360 ml Other 200 ml Output Urine Total 900 ml 2000 ml # Bowel Movements 1 2 Laboratory Tests 12/29/18 04:15: Sodium Level 143, Potassium Level 4.9, Chloride Level 110H, Carbon Dioxide Level 26, Anion Gap 8, Blood Urea Nitrogen 13, Creatinine 0.6, Estimat Glomerular Filtration Rate , Glucose Level 99, Calcium Level 9.6, Pro-B-Type Natriuretic Peptide 1752H Height (Feet): 5 Height (Inches): 2.00 Weight (Pounds): 138 Objective General Appearance: WD/WN, no apparent distress, confused Cardiovascular: regular rhythm Respiratory/Chest: chest wall non-tender, lungs clear, normal breath sounds Abdomen: normal bowel sounds, non tender, soft, no organomegaly Edema: no edema noted Arm (L), no edema noted Arm (R), no edema noted Leg (L), no edema noted Leg (R), no edema noted Pedal (L), no edema noted Pedal (R), no edema noted Generalized Neurologic: disoriented, unresponsive, aphasia Pablo Oconnell MD Dec 29, 2018 11:28
[2018-12-29 12:00] VITALS: BP 130/71
[2018-12-29 16:00] VITALS: BP 123/67
[2018-12-29] MEDS ORDERED: 1/2 NS 1000ml IV ONE (19:54)
[2018-12-29] MEDS ORDERED: Tubing IV Secondary IV ONE (19:54)
[2018-12-29] MEDS ORDERED: NS 275ml ONE (19:54)
[2018-12-29] MEDS ORDERED: Sterile Water Irrig 1000ml IRRIG ONE (19:54)
[2018-12-29 20:00] VITALS: BP 147/65
[2018-12-30] VITALS: BP 134/65
[2018-12-30 04:00] VITALS: BP 125/60
[2018-12-30] MEDS: NovoLOG Insulin Flexpen SUBQ SCH ×5 (06:00→23:54)
[2018-12-30] MEDS: Insulin NPH SUBQ SCH ×2 (06:04→17:32)
[2018-12-30] MEDS: ceFAZolin 2gm/50ml Premix 50 ML IV SCH ×3 (06:07→21:36)
[2018-12-30 06:30] LABS: BASOPHILS % (AUTO) 0.6 % (0.0-2.0); EOSINOPHILS % (AUTO) 6.9 % (0.0-3.0); HEMATOCRIT 26.5 % (37.0-47.0); HEMOGLOBIN 8.7 G/DL (12.0-16.0); LYMPHOCYTES % (AUTO) 13.1 % (20.0-45.0); MEAN CORPUSCULAR VOLUME 94 FL (80-99); MONOCYTES % (AUTO) 2.7 % (1.0-10.0); NEUTROPHILS % (AUTO) 76.7 % (45.0-75.0); PLATELET COUNT 286 K/UL (150-450); RED BLOOD COUNT 2.81 M/UL (4.20-5.40); RED CELL DISTRIBUTION WIDTH 16.3 % (11.6-14.8); WHITE BLOOD COUNT 10.3 K/UL (4.8-10.8)
[2018-12-30 07:04] LABS: ALANINE AMINOTRANSFERASE 15 U/L (12-78); ALBUMIN 2.2 G/DL (3.4-5.0); ALBUMIN/GLOBULIN RATIO 0.5 (1.0-2.7); ALKALINE PHOSPHATASE 50 U/L (46-116); ANION GAP 7 mmol/L (5-15); ASPARTATE AMINO TRANSFERASE 25 U/L (15-37); BILIRUBIN,TOTAL 0.3 MG/DL (0.2-1.0); BLOOD UREA NITROGEN 14 mg/dL (7-18); CALCIUM 9.8 MG/DL (8.5-10.1); CARBON DIOXIDE 25 MMOL/L (21-32); CHLORIDE 111 MMOL/L (98-107); CREATININE 0.5 MG/DL (0.55-1.30); SODIUM 143 MMOL/L (136-145)
[2018-12-30 08:00] VITALS: BP 125/60
--- NOTE | 2018-12-30 09:45 | Diagnostic Imaging Report ---
EXAM: XR Chest, 1 View CLINICAL HISTORY: ABN LABS TECHNIQUE: Frontal view of the chest. COMPARISON: Chest x-ray, 12/29/18 812 FINDINGS: Lungs: Slightly worsening bibasilar lung atelectasis and airspace disease. Pleural space: Slightly larger small bilateral pleural effusions. No pneumothorax. Heart: Cardiomegaly. Mediastinum: Continued widened appearance of the mediastinum. Bones/joints: Unremarkable. IMPRESSION: 1. Continued widened appearance of the mediastinum. 2. Slightly larger small bilateral pleural effusions. 3. Slightly worsening bibasilar lung atelectasis and airspace disease.
[2018-12-30] MEDS: Aspirin Baby 81mg GT SCH (10:05)
[2018-12-30] MEDS: Docusate 100mg/10ml Liq GT SCH (10:05)
[2018-12-30] MEDS: Metoprolol Tartrate 50mg tab GT SCH ×2 (10:07→21:36)
[2018-12-30] MEDS: Heparin 5000 units/ml inj SUBQ SCH ×2 (10:10→21:38)
--- NOTE | 2018-12-30 10:55 | Infectious Diseases Prog Note ---
Assessment/Plan Assessment/Plan A; 1. aspiration pneumonia with Citrobacter & MSSA 2. Leukocytosis is improving. 3. Diabetes. 4. Hypertension. 5. Hypernatremia 6. Anemia 7. Bacteremia with GPC PLAN: 1. Continue IV Cefazolin Subjective ROS Limited/Unobtainable: Yes Allergies: Coded Allergies: No Known Allergies (Unverified , 12/24/18) Objective Vital Signs Last 24 Hour Vital Signs Date Time Temp Pulse Resp B/P (MAP) Pulse Ox O2 Delivery O2 Flow Rate FiO2 12/30/18 10:07 75 125/51 12/30/18 08:00 Nasal Cannula 2.0 Nasal Cannula 2.0 Nasal Cannula 2.0 12/30/18 08:00 98.1 75 11 125/60 (81) 100 12/30/18 07:39 74 12/30/18 07:21 Nasal Cannula 2.0 28 12/30/18 07:21 100 Nasal Cannula 2.0 28 12/30/18 04:00 91 12/30/18 04:00 98.3 72 22 125/60 (81) 100 12/30/18 04:00 Nasal Cannula 2.0 Nasal Cannula 2.0 Nasal Cannula 2.0 12/30/18 00:00 98.4 64 24 134/65 (88) 99 12/30/18 00:00 72 12/30/18 00:00 Nasal Cannula 2.0 Nasal Cannula 2.0 Nasal Cannula 2.0 12/29/18 21:52 72 147/65 12/29/18 20:00 97.5 72 24 147/65 (92) 99 12/29/18 20:00 71 12/29/18 20:00 Nasal Cannula 2.0 Nasal Cannula 2.0 Nasal Cannula 2.0 12/29/18 19:21 73 20 Nasal Cannula 3.0 32 12/29/18 19:21 Nasal Cannula 3.0 32 12/29/18 19:21 98 Nasal Cannula 3.0 32 12/29/18 16:00 Nasal Cannula 2.0 Nasal Cannula 2.0 Nasal Cannula 2.0 12/29/18 16:00 97.7 79 28 123/67 (85) 99 12/29/18 15:40 78 12/29/18 12:00 Nasal Cannula 2.0 Nasal Cannula 2.0 Nasal Cannula 2.0 12/29/18 12:00 97.7 78 18 130/71 (90) 100 12/29/18 11:49 74 Height (Feet): 5 Height (Inches): 2.00 Weight (Pounds): 138 General Appearance: no acute distress HEENT: mucous membranes moist Respiratory/Chest: lungs clear, other - oxygen by nasal cannula Cardiovascular: normal rate Abdomen: soft, non tender, other - GT feeding Extremities: other - edema of legs Neurologic/Psychiatric: aphasia Laboratory Tests Test 12/30/18 05:10 White Blood Count 10.3 K/UL (4.8-10.8) Red Blood Count 2.81 M/UL (4.20-5.40) L Hemoglobin 8.7 G/DL (12.0-16.0) L Hematocrit 26.5 % (37.0-47.0) L Mean Corpuscular Volume 94 FL (80-99) Mean Corpuscular Hemoglobin 30.9 PG (27.0-31.0) Mean Corpuscular Hemoglobin Concent 32.7 G/DL (32.0-36.0) Red Cell Distribution Width 16.3 % (11.6-14.8) H Platelet Count 286 K/UL (150-450) Mean Platelet Volume 6.7 FL (6.5-10.1) Neutrophils (%) (Auto) 76.7 % (45.0-75.0) H Lymphocytes (%) (Auto) 13.1 % (20.0-45.0) L Monocytes (%) (Auto) 2.7 % (1.0-10.0) Eosinophils (%) (Auto) 6.9 % (0.0-3.0) H Basophils (%) (Auto) 0.6 % (0.0-2.0) Sodium Level 143 MMOL/L (136-145) Potassium Level 4.0 MMOL/L (3.5-5.1) Chloride Level 111 MMOL/L (98-107) H Carbon Dioxide Level 25 MMOL/L (21-32) Anion Gap 7 mmol/L (5-15) Blood Urea Nitrogen 14 mg/dL (7-18) Creatinine 0.5 MG/DL (0.55-1.30) L Estimat Glomerular Filtration Rate mL/min (>60) Glucose Level 99 MG/DL (74-106) Calcium Level 9.8 MG/DL (8.5-10.1) Total Bilirubin 0.3 MG/DL (0.2-1.0) Aspartate Amino Transf (AST/SGOT) 25 U/L (15-37) Alanine Aminotransferase (ALT/SGPT) 15 U/L (12-78) Alkaline Phosphatase 50 U/L (46-116) Total Protein 6.6 G/DL (6.4-8.2) Albumin 2.2 G/DL (3.4-5.0) L Globulin 4.4 g/dL Albumin/Globulin Ratio 0.5 (1.0-2.7) L Current Medications Medications (Trade) Dose Ordered Sig/João Route PRN Reason Start Time Stop Time Status Last Admin Dose Admin Aspirin (ASA) 81 mg DAILY GT 12/24/18 10:00 01/23/19 09:59 12/30/18 10:05 Cefazolin Sodium 50 ml @ 100 mls/hr Q8HR IV 12/28/18 12:00 01/04/19 11:59 12/30/18 06:07 Dextrose (Dextrose 50%) 25 ml Q30M PRN IV Hypoglycemia 12/25/18 16:30 01/24/19 16:29 Dextrose (Dextrose 50%) 50 ml Q30M PRN IV Hypoglycemia 12/25/18 16:30 01/24/19 16:29 Docusate Sodium (Colace) 100 mg DAILY GT 12/24/18 10:00 01/23/19 09:59 12/30/18 10:05 Heparin Sodium (Porcine) (Heparin 5000 units/ml) 5,000 units EVERY 12 HOURS SUBQ 12/24/18 21:00 01/23/19 20:59 12/30/18 10:10 Insulin Aspart (NovoLOG) Q6HR SUBQ 12/25/18 18:00 01/24/19 17:59 12/28/18 23:47 Insulin Human NPH (Humulin N) 12 units BIAC SUBQ 12/24/18 11:30 01/23/19 11:29 12/30/18 06:04 Metoprolol Tartrate (Lopressor) 50 mg EVERY 12 HOURS GT 12/24/18 10:00 01/23/19 09:59 12/30/18 10:07 Moi Zaldivar MD Dec 30, 2018 10:55
[2018-12-30 12:00] VITALS: BP 119/57
--- NOTE | 2018-12-30 12:06 | General Progress Note ---
Assessment/Plan Problem List: (1) Sepsis ICD Codes: A41.9 - Sepsis, unspecified organism SNOMED: 47819419 (2) PNA (pneumonia) ICD Codes: J18.9 - Pneumonia, unspecified organism SNOMED: 333471430 (3) AMI (acute myocardial infarction) ICD Codes: I21.9 - Acute myocardial infarction, unspecified SNOMED: 38635571 (4) Dyspnea ICD Codes: R06.00 - Dyspnea, unspecified SNOMED: 581616289 (5) Respiratory distress ICD Codes: R06.03 - Acute respiratory distress SNOMED: 748900594 (6) Shortness of breath ICD Codes: R06.02 - Shortness of breath SNOMED: 274795948 Status: stable, progressing Assessment/Plan cont current rx iv abx per id follow up culttures monitor cxr check duplex monitor bmp dvt/stress ulcer prophylaxis skin care antiplt consider ct chest to eval widened mediastinum. would not be candidate for surgical intervention though. poor prognosis Subjective ROS Limited/Unobtainable: No Constitutional: Reports: malaise, weakness HEENT: Reports: no symptoms Cardiovascular: Reports: no symptoms Respiratory: Reports: cough Gastrointestinal/Abdominal: Reports: difficulty swallowing Genitourinary: Reports: no symptoms Neurologic/Psychiatric: Reports: pre-existing deficit Endocrine: Reports: no symptoms Hematologic/Lymphatic: Reports: anemia Allergies: Coded Allergies: No Known Allergies (Unverified , 12/24/18) All Systems: reviewed and negative except above Subjective no events. seems less sob. no fever or chills. decreased o2 requirements. on nasal cannula Objective Last 24 Hour Vital Signs Date Time Temp Pulse Resp B/P (MAP) Pulse Ox O2 Delivery O2 Flow Rate FiO2 12/30/18 10:07 75 125/51 12/30/18 08:00 Nasal Cannula 2.0 Nasal Cannula 2.0 Nasal Cannula 2.0 12/30/18 08:00 98.1 75 11 125/60 (81) 100 12/30/18 07:39 74 12/30/18 07:21 Nasal Cannula 2.0 28 12/30/18 07:21 100 Nasal Cannula 2.0 28 12/30/18 04:00 91 12/30/18 04:00 98.3 72 22 125/60 (81) 100 12/30/18 04:00 Nasal Cannula 2.0 Nasal Cannula 2.0 Nasal Cannula 2.0 12/30/18 00:00 98.4 64 24 134/65 (88) 99 12/30/18 00:00 72 12/30/18 00:00 Nasal Cannula 2.0 Nasal Cannula 2.0 Nasal Cannula 2.0 12/29/18 21:52 72 147/65 12/29/18 20:00 97.5 72 24 147/65 (92) 99 12/29/18 20:00 71 12/29/18 20:00 Nasal Cannula 2.0 Nasal Cannula 2.0 Nasal Cannula 2.0 12/29/18 19:21 73 20 Nasal Cannula 3.0 32 12/29/18 19:21 Nasal Cannula 3.0 32 12/29/18 19:21 98 Nasal Cannula 3.0 32 12/29/18 16:00 Nasal Cannula 2.0 Nasal Cannula 2.0 Nasal Cannula 2.0 12/29/18 16:00 97.7 79 28 123/67 (85) 99 12/29/18 15:40 78 Intake and Output 12/29/18 12/30/18 19:00 07:00 Intake Total 60 ml 980 ml Output Total 1750 ml 900 ml Balance -1690 ml 80 ml Free Water 600 ml IV Total 50 ml Tube Feeding 60 ml 330 ml Output Urine Total 1750 ml 900 ml # Bowel Movements 1 Laboratory Tests 12/30/18 05:10: White Blood Count 10.3, Red Blood Count 2.81L, Hemoglobin 8.7L, Hematocrit 26.5L , Mean Corpuscular Volume 94, Mean Corpuscular Hemoglobin 30.9, Mean Corpuscular Hemoglobin Concent 32.7, Red Cell Distribution Width 16.3H, Platelet Count 286, Mean Platelet Volume 6.7, Neutrophils (%) (Auto) 76.7H, Lymphocytes (%) (Auto) 13.1L, Monocytes (%) (Auto) 2.7, Eosinophils (%) (Auto) 6.9H, Basophils (%) (Auto) 0.6, Sodium Level 143, Potassium Level 4.0, Chloride Level 111H, Carbon Dioxide Level 25, Anion Gap 7, Blood Urea Nitrogen 14, Creatinine 0.5L, Estimat Glomerular Filtration Rate , Glucose Level 99, Calcium Level 9.8, Total Bilirubin 0.3, Aspartate Amino Transf (AST/SGOT) 25, Alanine Aminotransferase (ALT/SGPT) 15, Alkaline Phosphatase 50, Total Protein 6.6, Albumin 2.2L, Globulin 4.4, Albumin/Globulin Ratio 0.5L Height (Feet): 5 Height (Inches): 2.00 Weight (Pounds): 138 Objective General Appearance: WD/WN, no apparent distress, confused Cardiovascular: regular rhythm Respiratory/Chest: chest wall non-tender, lungs clear, normal breath sounds Abdomen: normal bowel sounds, non tender, soft, no organomegaly Edema: no edema noted Arm (L), no edema noted Arm (R), no edema noted Leg (L), no edema noted Leg (R), no edema noted Pedal (L), no edema noted Pedal (R), no edema noted Generalized Neurologic: disoriented, unresponsive, aphasia Pablo Oconnell MD Dec 30, 2018 12:06
[2018-12-30 16:00] VITALS: BP 123/56
[2018-12-30 20:00] VITALS: BP 132/62
[2018-12-31] VITALS: BP 130/60
[2018-12-31 04:00] VITALS: BP 135/63
[2018-12-31 04:47] LABS: BASOPHILS % (AUTO) 0.4 % (0.0-2.0); EOSINOPHILS % (AUTO) 6.8 % (0.0-3.0); HEMATOCRIT 27.1 % (37.0-47.0); HEMOGLOBIN 8.8 G/DL (12.0-16.0); LYMPHOCYTES % (AUTO) 12.8 % (20.0-45.0); MEAN CORPUSCULAR VOLUME 96 FL (80-99); MONOCYTES % (AUTO) 4.2 % (1.0-10.0); NEUTROPHILS % (AUTO) 75.7 % (45.0-75.0); PLATELET COUNT 316 K/UL (150-450); RED BLOOD COUNT 2.81 M/UL (4.20-5.40); RED CELL DISTRIBUTION WIDTH 17.1 % (11.6-14.8); WHITE BLOOD COUNT 8.8 K/UL (4.8-10.8)
[2018-12-31 05:27] LABS: ALANINE AMINOTRANSFERASE 16 U/L (12-78); ALBUMIN 2.3 G/DL (3.4-5.0); ALBUMIN/GLOBULIN RATIO 0.5 (1.0-2.7); ALKALINE PHOSPHATASE 50 U/L (46-116); ANION GAP 7 mmol/L (5-15); ASPARTATE AMINO TRANSFERASE 25 U/L (15-37); BILIRUBIN,TOTAL 0.3 MG/DL (0.2-1.0); BLOOD UREA NITROGEN 17 mg/dL (7-18); CALCIUM 9.7 MG/DL (8.5-10.1); CARBON DIOXIDE 26 MMOL/L (21-32); CHLORIDE 111 MMOL/L (98-107); CREATININE 0.5 MG/DL (0.55-1.30); POTASSIUM 3.9 MMOL/L (3.5-5.1); SODIUM 144 MMOL/L (136-145)
[2018-12-31] MEDS: NovoLOG Insulin Flexpen SUBQ SCH ×3 (05:53→17:14)
[2018-12-31] MEDS: ceFAZolin 2gm/50ml Premix 50 ML IV SCH ×3 (05:54→21:02)
[2018-12-31] MEDS: Insulin NPH SUBQ SCH ×2 (05:55→17:13)
--- NOTE | 2018-12-31 07:30 | General Progress Note ---
Assessment/Plan Problem List: (1) Sepsis ICD Codes: A41.9 - Sepsis, unspecified organism SNOMED: 10193347 (2) PNA (pneumonia) ICD Codes: J18.9 - Pneumonia, unspecified organism SNOMED: 115022581 (3) AMI (acute myocardial infarction) ICD Codes: I21.9 - Acute myocardial infarction, unspecified SNOMED: 09556535 (4) Dyspnea ICD Codes: R06.00 - Dyspnea, unspecified SNOMED: 426094684 (5) Respiratory distress ICD Codes: R06.03 - Acute respiratory distress SNOMED: 688324421 (6) Shortness of breath ICD Codes: R06.02 - Shortness of breath SNOMED: 732824513 Status: stable, progressing Assessment/Plan cont current rx iv abx per id follow up culttures monitor cxr check duplex monitor bmp dvt/stress ulcer prophylaxis skin care antiplt consider ct chest to eval widened mediastinum. would not be candidate for surgical intervention though. ct head poor prognosis Subjective ROS Limited/Unobtainable: Yes Constitutional: Reports: malaise, weakness HEENT: Reports: no symptoms Cardiovascular: Reports: no symptoms Respiratory: Reports: no symptoms Gastrointestinal/Abdominal: Reports: difficulty swallowing Genitourinary: Reports: no symptoms Neurologic/Psychiatric: Reports: pre-existing deficit Endocrine: Reports: no symptoms Hematologic/Lymphatic: Reports: no symptoms Allergies: Coded Allergies: No Known Allergies (Unverified , 12/24/18) All Systems: reviewed and negative except above Subjective no events. seems less sob. no fever or chills. decreased o2 requirements. on nasal cannula awake but poorly responsive. Objective Last 24 Hour Vital Signs Date Time Temp Pulse Resp B/P (MAP) Pulse Ox O2 Delivery O2 Flow Rate FiO2 12/31/18 04:00 Nasal Cannula 2.0 Nasal Cannula 2.0 Nasal Cannula 2.0 12/31/18 04:00 97.3 72 20 135/63 (87) 100 12/31/18 04:00 73 12/31/18 00:00 97.3 65 24 130/60 (83) 99 12/31/18 00:00 Nasal Cannula 2.0 Nasal Cannula 2.0 Nasal Cannula 2.0 12/31/18 00:00 62 12/30/18 21:57 Nasal Cannula 2.0 28 12/30/18 21:52 98 Nasal Cannula 2.0 28 12/30/18 21:36 80 132/62 12/30/18 20:00 97.9 80 20 132/62 (85) 99 12/30/18 20:00 Nasal Cannula 2.0 Nasal Cannula 2.0 Nasal Cannula 2.0 12/30/18 20:00 82 12/30/18 16:00 Nasal Cannula 2.0 Nasal Cannula 2.0 Nasal Cannula 2.0 12/30/18 16:00 97.9 73 26 123/56 (78) 100 12/30/18 15:32 70 12/30/18 12:00 65 12/30/18 12:00 97.9 65 22 119/57 (77) 100 12/30/18 12:00 Nasal Cannula 2.0 Nasal Cannula 2.0 Nasal Cannula 2.0 12/30/18 10:07 75 125/51 12/30/18 08:00 Nasal Cannula 2.0 Nasal Cannula 2.0 Nasal Cannula 2.0 12/30/18 08:00 98.1 75 11 125/60 (81) 100 12/30/18 07:39 74 Intake and Output 12/30/18 12/31/18 18:59 06:59 Intake Total 80 ml 860 ml Output Total 1000 ml 600 ml Balance -920 ml 260 ml Free Water 400 ml IV Total 50 ml 100 ml Tube Feeding 30 ml 360 ml Output Urine Total 1000 ml 600 ml # Bowel Movements 2 Laboratory Tests 12/31/18 03:15: White Blood Count 8.8, Red Blood Count 2.81L, Hemoglobin 8.8L, Hematocrit 27.1L , Mean Corpuscular Volume 96, Mean Corpuscular Hemoglobin 31.3H, Mean Corpuscular Hemoglobin Concent 32.5, Red Cell Distribution Width 17.1H, Platelet Count 316, Mean Platelet Volume 7.3, Neutrophils (%) (Auto) 75.7H, Lymphocytes (%) (Auto) 12.8L, Monocytes (%) (Auto) 4.2, Eosinophils (%) (Auto) 6.8H, Basophils (%) (Auto) 0.4, Sodium Level 144, Potassium Level 3.9, Chloride Level 111H, Carbon Dioxide Level 26, Anion Gap 7, Blood Urea Nitrogen 17, Creatinine 0.5L, Estimat Glomerular Filtration Rate , Glucose Level 105, Calcium Level 9.7, Total Bilirubin 0.3, Aspartate Amino Transf (AST/SGOT) 25, Alanine Aminotransferase (ALT/SGPT) 16, Alkaline Phosphatase 50, Total Protein 6.6, Albumin 2.3L, Globulin 4.3, Albumin/Globulin Ratio 0.5L Height (Feet): 5 Height (Inches): 2.00 Weight (Pounds): 138 Objective General Appearance: WD/WN, no apparent distress, confused Cardiovascular: regular rhythm Respiratory/Chest: chest wall non-tender, lungs clear, normal breath sounds Abdomen: normal bowel sounds, non tender, soft, no organomegaly Edema: no edema noted Arm (L), no edema noted Arm (R), no edema noted Leg (L), no edema noted Leg (R), no edema noted Pedal (L), no edema noted Pedal (R), no edema noted Generalized Neurologic: disoriented, unresponsive, aphasia Pablo Oconnell MD Dec 31, 2018 07:30
[2018-12-31 08:00] VITALS: BP 127/61
[2018-12-31] MEDS: Docusate 100mg/10ml Liq GT SCH (08:54)
[2018-12-31] MEDS: Aspirin Baby 81mg GT SCH (08:54)
[2018-12-31] MEDS: Metoprolol Tartrate 50mg tab GT SCH ×2 (08:54→21:00)
[2018-12-31] MEDS: Heparin 5000 units/ml inj SUBQ SCH ×2 (08:55→21:01)
--- NOTE | 2018-12-31 10:54 | Infectious Diseases Prog Note ---
"Assessment/Plan Assessment/Plan antibiotics : ancef A 1. staph aureus | citrobacter pneumonia 2. viridans streptococcus UTI 3. leucocytosis resolved 4. + blood cultures with coag neg staph likely contaminated 5. diabetes mellitus 6. hypertension P 1. continue ancef 2 more days 2. will follow up cultures Subjective ROS Limited/Unobtainable: Yes Allergies: Coded Allergies: No Known Allergies (Unverified , 12/24/18) Objective Vital Signs Last 24 Hour Vital Signs Date Time Temp Pulse Resp B/P (MAP) Pulse Ox O2 Delivery O2 Flow Rate FiO2 12/31/18 08:54 84 127/61 12/31/18 08:00 97.5 84 28 127/61 (83) 98 12/31/18 08:00 Nasal Cannula 2.0 12/31/18 08:00 81 12/31/18 04:00 Nasal Cannula 2.0 Nasal Cannula 2.0 Nasal Cannula 2.0 12/31/18 04:00 97.3 72 20 135/63 (87) 100 12/31/18 04:00 73 12/31/18 00:00 97.3 65 24 130/60 (83) 99 12/31/18 00:00 Nasal Cannula 2.0 Nasal Cannula 2.0 Nasal Cannula 2.0 12/31/18 00:00 62 12/30/18 21:57 Nasal Cannula 2.0 28 12/30/18 21:52 98 Nasal Cannula 2.0 28 12/30/18 21:36 80 132/62 12/30/18 20:00 97.9 80 20 132/62 (85) 99 12/30/18 20:00 Nasal Cannula 2.0 Nasal Cannula 2.0 Nasal Cannula 2.0 12/30/18 20:00 82 12/30/18 16:00 Nasal Cannula 2.0 Nasal Cannula 2.0 Nasal Cannula 2.0 12/30/18 16:00 97.9 73 26 123/56 (78) 100 12/30/18 15:32 70 12/30/18 12:00 65 12/30/18 12:00 97.9 65 22 119/57 (77) 100 12/30/18 12:00 Nasal Cannula 2.0 Nasal Cannula 2.0 Nasal Cannula 2.0 Height (Feet): 5 Height (Inches): 2.00 Weight (Pounds): 138 Respiratory/Chest: lungs clear Cardiovascular: normal rate, regular rhythm, no gallop/murmur Abdomen: soft, non tender Extremities: no edema Laboratory Tests Test 12/31/18 03:15 White Blood Count 8.8 K/UL (4.8-10.8) Red Blood Count 2.81 M/UL (4.20-5.40) L Hemoglobin 8.8 G/DL (12.0-16.0) L Hematocrit 27.1 % (37.0-47.0) L Mean Corpuscular Volume 96 FL (80-99) Mean Corpuscular Hemoglobin 31.3 PG (27.0-31.0) H Mean Corpuscular Hemoglobin Concent 32.5 G/DL (32.0-36.0) Red Cell Distribution Width 17.1 % (11.6-14.8) H Platelet Count 316 K/UL (150-450) Mean Platelet Volume 7.3 FL (6.5-10.1) Neutrophils (%) (Auto) 75.7 % (45.0-75.0) H Lymphocytes (%) (Auto) 12.8 % (20.0-45.0) L Monocytes (%) (Auto) 4.2 % (1.0-10.0) Eosinophils (%) (Auto) 6.8 % (0.0-3.0) H Basophils (%) (Auto) 0.4 % (0.0-2.0) Sodium Level 144 MMOL/L (136-145) Potassium Level 3.9 MMOL/L (3.5-5.1) Chloride Level 111 MMOL/L (98-107) H Carbon Dioxide Level 26 MMOL/L (21-32) Anion Gap 7 mmol/L (5-15) Blood Urea Nitrogen 17 mg/dL (7-18) Creatinine 0.5 MG/DL (0.55-1.30) L Estimat Glomerular Filtration Rate mL/min (>60) Glucose Level 105 MG/DL (74-106) Calcium Level 9.7 MG/DL (8.5-10.1) Total Bilirubin 0.3 MG/DL (0.2-1.0) Aspartate Amino Transf (AST/SGOT) 25 U/L (15-37) Alanine Aminotransferase (ALT/SGPT) 16 U/L (12-78) Alkaline Phosphatase 50 U/L (46-116) Total Protein 6.6 G/DL (6.4-8.2) Albumin 2.3 G/DL (3.4-5.0) L Globulin 4.3 g/dL Albumin/Globulin Ratio 0.5 (1.0-2.7) L Current Medications Medications (Trade) Dose Ordered Sig/João Route PRN Reason Start Time Stop Time Status Last Admin Dose Admin Aspirin (ASA) 81 mg DAILY GT 12/24/18 10:00 01/23/19 09:59 12/31/18 08:54 Cefazolin Sodium 50 ml @ 100 mls/hr Q8HR IV 12/28/18 12:00 01/04/19 11:59 12/31/18 05:54 Dextrose (Dextrose 50%) 25 ml Q30M PRN IV Hypoglycemia 12/25/18 16:30 01/24/19 16:29 Dextrose (Dextrose 50%) 50 ml Q30M PRN IV Hypoglycemia 12/25/18 16:30 01/24/19 16:29 Docusate Sodium (Colace) 100 mg DAILY GT 12/24/18 10:00 01/23/19 09:59 12/31/18 08:54 Heparin Sodium (Porcine) (Heparin 5000 units/ml) 5,000 units EVERY 12 HOURS SUBQ 12/24/18 21:00 01/23/19 20:59 12/31/18 08:55 Insulin Aspart (NovoLOG) Q6HR SUBQ 12/25/18 18:00 01/24/19 17:59 12/28/18 23:47 Insulin Human NPH (Humulin N) 12 units BIAC SUBQ 12/24/18 11:30 01/23/19 11:29 12/31/18 05:55 Metoprolol Tartrate (Lopressor) 50 mg EVERY 12 HOURS GT 12/24/18 10:00 01/23/19 09:59 12/31/18 08:54 Flavia Macdonald MD Dec 31, 2018 10:54"
[2018-12-31 12:00] VITALS: BP 128/73
--- NOTE | 2018-12-31 15:08 | Diagnostic Imaging Report ---
Clinical Indication: Shortness of breath Technique: Spiral acquisitions obtained through the chest. No IV contrast utilized, reason not stated. Multiplanar reconstructions generated. Total dose length product 565.38 mGycm. CTDIvol(s) 18.69 mGy. Dose reduction achieved using automated exposure control Comparison: none Findings:There is some image degradation due to respiratory motion artifact. There are bilateral [id number] pleural effusions, right greater than left. There is resultant compressive atelectasis of much of the right lower lobe, portions of the left lower lobe. Much of the nonatelectatic right lower lobe demonstrates considerable consolidation. There is also some posterior atelectatic change as well as some posterior consolidation of the right upper lobe. No definite masses. The heart is borderline enlarged. There is minimal pericardial thickening versus fluid posteriorly. The pulmonary arteries are somewhat ectatic. The ascending thoracic aorta is somewhat ectatic, measuring up to 3.6 cm in diameter. No mediastinal or hilar mass or adenopathy. There is a 4.4 x 3 cm diameter right lower pole thyroid mass. This deviates the trachea slightly to the left. A calcification is seen within the lower pole of the right thyroid lobe. Esophagus is unremarkable. No axillary or chest wall mass or adenopathy. The included upper abdominal anatomy demonstrates gallstones. Impression: Bilateral small to moderate right greater than left pleural effusions Compressive atelectatic changes of both lower lobes. Consolidation of much of the remaining right lower lobe and portions of the right upper lobe Borderline cardiomegaly Somewhat ectatic pulmonary arteries, raises possibility of pulmonary arterial hypertension Ectatic but not frankly aneurysmal thoracic aorta 4.4 x 3 cm diameter right lower pole thyroid mass. Consider further evaluation with sonography. Small thyroid calcification is also demonstrated. Cholelithiasis The CT scanner at [facility] is accredited by the [employer] and the scans are performed using protocols designed to limit radiation exposure to as low as reasonably achievable to attain images of sufficient resolution adequate for diagnostic evaluation.
--- NOTE | 2018-12-31 15:10 | Diagnostic Imaging Report ---
Indications: Altered mental status Technique: Spiral acquisitions obtained through the brain. Angled axial and coronal 5 x 5 mm slices were reconstructed. Total dose length product 1379.6 mGycm. CTDI vol(s) 70.38 mGy. Dose reduction achieved using automated exposure control Comparison: None. Findings: There is an area of encephalomalacia involving the right occipital lobe and posterior parasagittal parietal lobe. There is some encephalomalacia involving the right cerebellar hemisphere as well. There is age-related enlargement of the ventricles and extra axial CSF spaces. There is periventricular deep white matter low-attenuation, consistent with chronic ischemic change. Old lacunar infarct is seen in the right basal ganglia. Large old lacunar infarct seen in the left thalamus medially. Questionable lacunar infarct seen in the right osmar and brachium pontis. No acute intracranial hemorrhage nor edema. No mass effect or midline shift. Otherwise normal norman-white differentiation. There is mild periventricular deep white matter low-attenuation consistent with chronic ischemic change. Impression: Multiple old infarcts, as described Other chronic and age-related changes Negative for acute intracranial bleed or mass effect. The CT scanner at [facility] is accredited by the [employer] and the scans are performed using protocols designed to limit radiation exposure to as low as reasonably achievable to attain images of sufficient resolution adequate for diagnostic evaluation.
[2018-12-31 16:00] VITALS: BP 125/58
[2018-12-31 20:00] VITALS: BP 138/65
[2019-01-01] VITALS: BP 135/62
[2019-01-01] MEDS: NovoLOG Insulin Flexpen SUBQ SCH ×5 (00:27→23:18)
--- NOTE | 2019-01-01 01:45 | Progress Note ---
DATE: 12/31/2018 CARDIOLOGY PROGRESS NOTE SUBJECTIVE: The patient remains with shortness of breath and congestion although some oxygen requirements have decreased. OBJECTIVE: VITAL SIGNS: Blood pressure 135/63, pulse 72, respiratory rate 20, and afebrile. Monitored rhythm sinus with atrial ectopy. LUNGS: Rhonchi with better breath sounds. HEART: Regular rhythm and rate. Normal S1, S2. ABDOMEN: Soft. EXTREMITIES: Trace edema. LABORATORY DATA: White count 8.8 and hemoglobin 8.8. Sodium 144, potassium 3.9, bicarb 26, BUN 17, and creatinine 0.5. Albumin 2.3. CAT scan of the chest today revealed ectatic pulmonary arteries, cardiomegaly, consolidation of the right lower lobe and right upper lobe, and bilateral [id number] pleural effusions. IMPRESSION: 1. Healthcare-acquired pneumonia. 2. Pleural effusions. 3. Severe protein-calorie malnutrition. 4. Thyroid nodule versus mass. 5. No signs of aortic dissection or aneurysm. 6. Paroxysmal atrial ectopy. 7. Dehydration and hypernatremia, recovered. 8. Sepsis, resolving. PLAN: 1. Nutrition by G-tube. 2. Antimicrobials. 3. Respiratory hygiene. 4. Free water replacement as needed. 5. Continue optimization of cardiovascular regimen. 6. Antimicrobials per Infectious Disease industrial methods consultant. 7. Respiratory hygiene. 8. No role for thoracentesis presently but may need to be considered in the future. Jagjit Wright M.D. DR: TRESSA JOB#: [id number] CC:
[2019-01-01 04:00] VITALS: BP 110/60
[2019-01-01 04:48] LABS: BASOPHILS % (AUTO) 0.8 % (0.0-2.0); EOSINOPHILS % (AUTO) 6.3 % (0.0-3.0); HEMATOCRIT 27.2 % (37.0-47.0); HEMOGLOBIN 8.7 G/DL (12.0-16.0); LYMPHOCYTES % (AUTO) 12.2 % (20.0-45.0); MEAN CORPUSCULAR VOLUME 96 FL (80-99); MONOCYTES % (AUTO) 3.8 % (1.0-10.0); NEUTROPHILS % (AUTO) 76.9 % (45.0-75.0); PLATELET COUNT 330 K/UL (150-450); RED BLOOD COUNT 2.82 M/UL (4.20-5.40); RED CELL DISTRIBUTION WIDTH 17.2 % (11.6-14.8)
[2019-01-01] MEDS: ceFAZolin 2gm/50ml Premix 50 ML IV SCH ×3 (05:11→21:17)
[2019-01-01 05:17] LABS: ALANINE AMINOTRANSFERASE 11 U/L (12-78); ALBUMIN 2.3 G/DL (3.4-5.0); ALBUMIN/GLOBULIN RATIO 0.5 (1.0-2.7); ALKALINE PHOSPHATASE 56 U/L (46-116); ANION GAP 7 mmol/L (5-15); ASPARTATE AMINO TRANSFERASE 23 U/L (15-37); BILIRUBIN,TOTAL 0.3 MG/DL (0.2-1.0); BLOOD UREA NITROGEN 17 mg/dL (7-18); CALCIUM 10.5 MG/DL (8.5-10.1); CARBON DIOXIDE 27 MMOL/L (21-32); CHLORIDE 113 MMOL/L (98-107); CREATININE 0.6 MG/DL (0.55-1.30); POTASSIUM 3.5 MMOL/L (3.5-5.1); SODIUM 147 MMOL/L (136-145)
[2019-01-01] MEDS: Insulin NPH SUBQ SCH ×2 (06:31→17:44)
[2019-01-01 08:00] VITALS: BP 154/73
[2019-01-01] MEDS: Aspirin Baby 81mg GT SCH (08:00)
[2019-01-01] MEDS: Docusate 100mg/10ml Liq GT SCH (08:00)
[2019-01-01] MEDS: Heparin 5000 units/ml inj SUBQ SCH ×2 (08:02→20:37)
[2019-01-01] MEDS: Metoprolol Tartrate 50mg tab GT SCH ×2 (08:42→20:36)
--- NOTE | 2019-01-01 08:45 | General Progress Note ---
Assessment/Plan Problem List: (1) Sepsis ICD Codes: A41.9 - Sepsis, unspecified organism SNOMED: 93792526 (2) PNA (pneumonia) ICD Codes: J18.9 - Pneumonia, unspecified organism SNOMED: 545853698 (3) AMI (acute myocardial infarction) ICD Codes: I21.9 - Acute myocardial infarction, unspecified SNOMED: 00382485 (4) Dyspnea ICD Codes: R06.00 - Dyspnea, unspecified SNOMED: 628702180 (5) Respiratory distress ICD Codes: R06.03 - Acute respiratory distress SNOMED: 550549484 (6) Shortness of breath ICD Codes: R06.02 - Shortness of breath SNOMED: 072672605 Status: stable, progressing Assessment/Plan cont current rx iv abx per id follow up culttures monitor bmp dvt/stress ulcer prophylaxis skin care antiplt outpt follow up dc planning poor prognosis Subjective ROS Limited/Unobtainable: No Constitutional: Reports: malaise, weakness HEENT: Reports: no symptoms Cardiovascular: Reports: no symptoms Respiratory: Reports: shortness of breath Gastrointestinal/Abdominal: Reports: difficulty swallowing Genitourinary: Reports: no symptoms Neurologic/Psychiatric: Reports: pre-existing deficit Endocrine: Reports: no symptoms Hematologic/Lymphatic: Reports: no symptoms Allergies: Coded Allergies: No Known Allergies (Unverified , 12/24/18) All Systems: reviewed and negative except above Subjective no events. seems less sob. no fever or chills. decreased o2 requirements. on nasal cannula awake but poorly responsive. 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 Objective Last 24 Hour Vital Signs Date Time Temp Pulse Resp B/P (MAP) Pulse Ox O2 Delivery O2 Flow Rate FiO2 01/01/19 08:00 Nasal Cannula 2.0 01/01/19 04:00 76 01/01/19 04:00 Nasal Cannula 2.0 01/01/19 04:00 98.2 70 24 110/60 (77) 100 01/01/19 00:00 97.4 71 20 135/62 (86) 97 01/01/19 00:00 Nasal Cannula 2.0 12/31/18 21:00 81 138/65 12/31/18 20:08 Nasal Cannula 2.0 28 12/31/18 20:08 100 Nasal Cannula 2.0 28 12/31/18 20:00 97.7 81 24 138/65 (89) 99 12/31/18 20:00 82 12/31/18 20:00 Nasal Cannula 2.0 12/31/18 16:00 Nasal Cannula 2.0 12/31/18 16:00 97.2 76 23 125/58 (80) 100 12/31/18 15:30 73 12/31/18 12:02 77 12/31/18 12:00 Nasal Cannula 2.0 12/31/18 12:00 97.2 86 28 128/73 (91) 98 12/31/18 08:54 84 127/61 Intake and Output 12/31/18 01/01/19 18:59 06:59 Intake Total 80 ml 1010 ml Output Total 900 ml 600 ml Balance -820 ml 410 ml Free Water 600 ml IV Total 50 ml 50 ml Tube Feeding 30 ml 360 ml Output Urine Total 900 ml 600 ml Laboratory Tests 01/01/19 03:20: White Blood Count 9.0, Red Blood Count 2.82L, Hemoglobin 8.7L, Hematocrit 27.2L , Mean Corpuscular Volume 96, Mean Corpuscular Hemoglobin 30.7, Mean Corpuscular Hemoglobin Concent 31.9L, Red Cell Distribution Width 17.2H, Platelet Count 330, Mean Platelet Volume 6.8, Neutrophils (%) (Auto) 76.9H, Lymphocytes (%) (Auto) 12.2L, Monocytes (%) (Auto) 3.8, Eosinophils (%) (Auto) 6.3H, Basophils (%) (Auto) 0.8, Sodium Level 147H, Potassium Level 3.5, Chloride Level 113H, Carbon Dioxide Level 27, Anion Gap 7, Blood Urea Nitrogen 17, Creatinine 0.6, Estimat Glomerular Filtration Rate , Glucose Level 105, Calcium Level 10.5H, Magnesium Level 2.0, Total Bilirubin 0.3, Aspartate Amino Transf (AST/SGOT) 23, Alanine Aminotransferase (ALT/SGPT) 11L, Alkaline Phosphatase 56, Pro-B-Type Natriuretic Peptide 1115H, Total Protein 6.7, Albumin 2.3L, Globulin 4.4, Albumin/Globulin Ratio 0.5L Height (Feet): 5 Height (Inches): 2.00 Weight (Pounds): 138 Objective General Appearance: WD/WN, no apparent distress, confused Cardiovascular: regular rhythm Respiratory/Chest: chest wall non-tender, lungs clear, normal breath sounds Abdomen: normal bowel sounds, non tender, soft, no organomegaly Edema: no edema noted Arm (L), no edema noted Arm (R), no edema noted Leg (L), no edema noted Leg (R), no edema noted Pedal (L), no edema noted Pedal (R), no edema noted Generalized Neurologic: disoriented, unresponsive, aphasia Pablo Oconnell MD Jan 01, 2019 08:45
--- NOTE | 2019-01-01 10:21 | Infectious Diseases Prog Note ---
"Assessment/Plan Assessment/Plan antibiotics : ancef A 1. staph aureus | citrobacter pneumonia 2. viridans streptococcus UTI 3. leucocytosis resolved 4. + blood cultures with coag neg staph likely contaminated 5. diabetes mellitus 6. hypertension P 1. continue ancef 1 more day 2. will follow up cultures Subjective Constitutional: Denies: fever, chills Respiratory: Reports: dry cough - decreased; Denies: shortness of breath Gastrointestinal/Abdominal: Denies: nausea, vomiting, diarrhea Musculoskeletal: Denies: pain Allergies: Coded Allergies: No Known Allergies (Unverified , 12/24/18) Objective Vital Signs Last 24 Hour Vital Signs Date Time Temp Pulse Resp B/P (MAP) Pulse Ox O2 Delivery O2 Flow Rate FiO2 01/01/19 08:42 75 154/73 01/01/19 08:00 98.8 75 21 154/73 (100) 100 01/01/19 08:00 Nasal Cannula 2.0 01/01/19 08:00 78 01/01/19 04:00 76 01/01/19 04:00 Nasal Cannula 2.0 01/01/19 04:00 98.2 70 24 110/60 (77) 100 01/01/19 00:00 97.4 71 20 135/62 (86) 97 01/01/19 00:00 Nasal Cannula 2.0 12/31/18 21:00 81 138/65 12/31/18 20:08 Nasal Cannula 2.0 28 12/31/18 20:08 100 Nasal Cannula 2.0 28 12/31/18 20:00 97.7 81 24 138/65 (89) 99 12/31/18 20:00 82 12/31/18 20:00 Nasal Cannula 2.0 12/31/18 16:00 Nasal Cannula 2.0 12/31/18 16:00 97.2 76 23 125/58 (80) 100 12/31/18 15:30 73 12/31/18 12:02 77 12/31/18 12:00 Nasal Cannula 2.0 12/31/18 12:00 97.2 86 28 128/73 (91) 98 Height (Feet): 5 Height (Inches): 2.00 Weight (Pounds): 138 Respiratory/Chest: lungs clear Cardiovascular: normal rate, regular rhythm, no gallop/murmur Abdomen: soft, non tender Extremities: no edema Laboratory Tests Test 01/01/19 03:20 White Blood Count 9.0 K/UL (4.8-10.8) Red Blood Count 2.82 M/UL (4.20-5.40) L Hemoglobin 8.7 G/DL (12.0-16.0) L Hematocrit 27.2 % (37.0-47.0) L Mean Corpuscular Volume 96 FL (80-99) Mean Corpuscular Hemoglobin 30.7 PG (27.0-31.0) Mean Corpuscular Hemoglobin Concent 31.9 G/DL (32.0-36.0) L Red Cell Distribution Width 17.2 % (11.6-14.8) H Platelet Count 330 K/UL (150-450) Mean Platelet Volume 6.8 FL (6.5-10.1) Neutrophils (%) (Auto) 76.9 % (45.0-75.0) H Lymphocytes (%) (Auto) 12.2 % (20.0-45.0) L Monocytes (%) (Auto) 3.8 % (1.0-10.0) Eosinophils (%) (Auto) 6.3 % (0.0-3.0) H Basophils (%) (Auto) 0.8 % (0.0-2.0) Sodium Level 147 MMOL/L (136-145) H Potassium Level 3.5 MMOL/L (3.5-5.1) Chloride Level 113 MMOL/L (98-107) H Carbon Dioxide Level 27 MMOL/L (21-32) Anion Gap 7 mmol/L (5-15) Blood Urea Nitrogen 17 mg/dL (7-18) Creatinine 0.6 MG/DL (0.55-1.30) Estimat Glomerular Filtration Rate mL/min (>60) Glucose Level 105 MG/DL (74-106) Calcium Level 10.5 MG/DL (8.5-10.1) H Magnesium Level 2.0 MG/DL (1.8-2.4) Total Bilirubin 0.3 MG/DL (0.2-1.0) Aspartate Amino Transf (AST/SGOT) 23 U/L (15-37) Alanine Aminotransferase (ALT/SGPT) 11 U/L (12-78) L Alkaline Phosphatase 56 U/L (46-116) Pro-B-Type Natriuretic Peptide 1115 pg/mL (0-125) H Total Protein 6.7 G/DL (6.4-8.2) Albumin 2.3 G/DL (3.4-5.0) L Globulin 4.4 g/dL Albumin/Globulin Ratio 0.5 (1.0-2.7) L Current Medications Medications (Trade) Dose Ordered Sig/João Route PRN Reason Start Time Stop Time Status Last Admin Dose Admin Aspirin (ASA) 81 mg DAILY GT 12/24/18 10:00 01/23/19 09:59 01/01/19 08:00 Cefazolin Sodium 50 ml @ 100 mls/hr Q8HR IV 12/28/18 12:00 01/04/19 11:59 01/01/19 05:11 Dextrose (Dextrose 50%) 25 ml Q30M PRN IV Hypoglycemia 12/25/18 16:30 01/24/19 16:29 Dextrose (Dextrose 50%) 50 ml Q30M PRN IV Hypoglycemia 12/25/18 16:30 01/24/19 16:29 Docusate Sodium (Colace) 100 mg DAILY GT 12/24/18 10:00 01/23/19 09:59 01/01/19 08:00 Heparin Sodium (Porcine) (Heparin 5000 units/ml) 5,000 units EVERY 12 HOURS SUBQ 12/24/18 21:00 01/23/19 20:59 01/01/19 08:02 Insulin Aspart (NovoLOG) Q6HR SUBQ 12/25/18 18:00 01/24/19 17:59 01/01/19 00:27 Insulin Human NPH (Humulin N) 12 units BIAC SUBQ 12/24/18 11:30 01/23/19 11:29 01/01/19 06:31 Metoprolol Tartrate (Lopressor) 50 mg EVERY 12 HOURS GT 12/24/18 10:00 01/23/19 09:59 01/01/19 08:42 Flavia Macdonald MD Jan 01, 2019 10:21"
[2019-01-01 12:00] VITALS: BP 143/62
[2019-01-01 16:00] VITALS: BP 136/65
[2019-01-01 20:00] VITALS: BP 157/78
[2019-01-02] VITALS: BP 132/75
[2019-01-02 04:00] VITALS: BP 142/79
[2019-01-02] MEDS: NovoLOG Insulin Flexpen SUBQ SCH ×2 (06:06→12:15)
[2019-01-02] MEDS: ceFAZolin 2gm/50ml Premix 50 ML IV SCH (06:07)
[2019-01-02] MEDS: Insulin NPH SUBQ SCH (06:37)
[2019-01-02 08:00] VITALS: BP 149/89
[2019-01-02] MEDS ORDERED: METOPROLOL TART50 MG GT (08:09)
[2019-01-02] MEDS: Aspirin Baby 81mg GT SCH (09:57)
[2019-01-02] MEDS: Metoprolol Tartrate 50mg tab GT SCH (09:57)
[2019-01-02] MEDS: Docusate 100mg/10ml Liq GT SCH (09:57)
[2019-01-02] MEDS: Heparin 5000 units/ml inj SUBQ SCH (10:02)
--- NOTE | 2019-01-02 10:34 | Infectious Diseases Prog Note ---
"Assessment/Plan Assessment/Plan antibiotics : ancef A 1. staph aureus | citrobacter pneumonia s/p rx 2. viridans streptococcus UTI s/p rx 3. leucocytosis resolved 4. + blood cultures with coag neg staph likely contaminated 5. diabetes mellitus 6. hypertension P 1. d/c ancef 2. observe off antibiotics Subjective ROS Limited/Unobtainable: Yes Allergies: Coded Allergies: No Known Allergies (Unverified , 12/24/18) Objective Vital Signs Last 24 Hour Vital Signs Date Time Temp Pulse Resp B/P (MAP) Pulse Ox O2 Delivery O2 Flow Rate FiO2 01/02/19 09:57 103 149/89 01/02/19 08:00 98.1 103 28 149/89 (109) 98 01/02/19 04:00 98.6 98 24 142/79 (100) 98 01/02/19 04:00 Nasal Cannula 2.0 01/02/19 03:22 92 01/02/19 00:00 97.8 71 24 132/75 (94) 99 01/02/19 00:00 Nasal Cannula 2.0 01/01/19 23:23 74 01/01/19 20:36 102 157/78 01/01/19 20:00 Nasal Cannula 2.0 01/01/19 20:00 98.4 102 24 157/78 (104) 98 01/01/19 19:44 103 01/01/19 16:00 Nasal Cannula 2.0 01/01/19 16:00 78 01/01/19 16:00 97.5 80 24 136/65 (88) 99 01/01/19 12:00 77 01/01/19 12:00 97.4 65 22 143/62 (89) 99 01/01/19 12:00 Nasal Cannula 2.0 Height (Feet): 5 Height (Inches): 2.00 Weight (Pounds): 140 Respiratory/Chest: lungs clear Cardiovascular: normal rate, regular rhythm, no gallop/murmur Abdomen: soft, non tender, other - GT Extremities: no edema Current Medications Medications (Trade) Dose Ordered Sig/João Route PRN Reason Start Time Stop Time Status Last Admin Dose Admin Aspirin (ASA) 81 mg DAILY GT 12/24/18 10:00 01/23/19 09:59 01/02/19 09:57 Cefazolin Sodium 50 ml @ 100 mls/hr Q8HR IV 12/28/18 12:00 01/04/19 11:59 01/02/19 06:07 Dextrose (Dextrose 50%) 25 ml Q30M PRN IV Hypoglycemia 12/25/18 16:30 01/24/19 16:29 Dextrose (Dextrose 50%) 50 ml Q30M PRN IV Hypoglycemia 12/25/18 16:30 01/24/19 16:29 Docusate Sodium (Colace) 100 mg DAILY GT 12/24/18 10:00 01/23/19 09:59 01/02/19 09:57 Heparin Sodium (Porcine) (Heparin 5000 units/ml) 5,000 units EVERY 12 HOURS SUBQ 12/24/18 21:00 01/23/19 20:59 01/02/19 10:02 Insulin Aspart (NovoLOG) Q6HR SUBQ 12/25/18 18:00 01/24/19 17:59 01/02/19 06:06 Insulin Human NPH (Humulin N) 12 units BIAC SUBQ 12/24/18 11:30 01/23/19 11:29 01/02/19 06:37 Metoprolol Tartrate (Lopressor) 50 mg EVERY 12 HOURS GT 12/24/18 10:00 01/23/19 09:59 01/02/19 09:57 Flavia Macdonald MD Jan 02, 2019 10:34"
[2019-01-02 12:00] VITALS: BP 144/83
[2019-01-02] MEDS ORDERED: NS 275ml ONE (12:43)
[2019-01-02] MEDS ORDERED: NS 500ML ONE (12:43)
--- NOTE | 2019-01-03 13:13 | Discharge Summary ---
DATE OF ADMISSION: 12/24/2018 DATE OF DISCHARGE: 01/02/2019 ADMISSION DIAGNOSES: 1. Respiratory failure. 2. Encephalopathy. 3. Pneumonia. 4. Sepsis. 5. Anemia. 6. Diabetes. 7. Hypertension. 8. Possible acute OR. DISCHARGE DIAGNOSES: 1. Respiratory failure. 2. Encephalopathy. 3. Pneumonia. 4. Sepsis. 5. Anemia. 6. Diabetes. 7. Hypertension. 8. Possible acute OR. HOSPITAL COURSE: The patient is an unfortunate female admitted with complaints of sepsis, elevated troponin, stroke, hypertension, and diabetes. She was initially admitted to a monitored bed. She did have an advance directive for DNR. She was placed on BiPAP. She received broad-spectrum IV antibiotics. Cardiac medications were continued. She was continued on diabetic regimen. The patient had a slow response to therapy. She was eventually weaned off BiPAP to a Ventimask and later to a nasal cannula. She completed all of her IV antibiotics while in-house. Of note, she did have a CAT scan of the chest that showed a thyroid mass. There is a slight amount of deviation of the trachea, but the patient had no distress. The patient will be discharged to a assisted facility. It will be recommended that she follow up with her primary care doctor and possibly ENT for further evaluation of her mass. She is severely debilitated and therefore an aggressive workup should be discussed at length with family members. Actually is a poor candidate for any type of invasive treatment. DIET: G-tube feedings. ACTIVITIES: Ad-jason. FOLLOWUP: The patient to follow up by her PMD at the assisted facility. Pablo Oconnell M.D. DR: KELLIE JOB#: [id number] CC:
--- NOTE | 2019-01-03 13:14 | Progress Note ---
DATE: 01/01/2019 SUBJECTIVE: The patient remains on hypotonic IV fluid hydration. The patient remains on respiratory therapy. Still with shortness of breath, but improved and decreasing oxygen requirements, now on nasal cannula. Poorly responsive. OBJECTIVE: VITAL SIGNS: Blood pressure 110/60, pulse 70, and respirations 24. LUNGS: Coarse breath sounds. Scattered rhonchi. HEART: Regular rhythm and rate. Normal S1, S2. ABDOMEN: Soft. EXTREMITIES: Trace edema. LABORATORY DATA: White count 9, hemoglobin 8.7. Sodium 147, potassium 3.5, BUN 17, and creatinine 0.6. Pro-natriuretic peptide 1100. IMPRESSION: 1. Dehydration. 2. Hypernatremia. 3. Hyperchloremia. 4. Acute on chronic diastolic congestive heart failure, improved. 5. Acute myocardial infarction, non-ST elevation type. 6. Aspiration pneumonia. 7. Recovered sepsis with shock. PLAN: 1. Antimicrobials. 2. Hypotonic hydration. 3. Respiratory hygiene. 4. Nutrition by feeding tube. 5. Conservative management in this age group and clinical setting. Jagjit Wright M.D. DR: APRIL JOB#: [id number] CC:
--- NOTE | 2019-01-03 13:14 | Progress Note ---
CARDIOLOGY PROGRESS NOTE DATE: 01/02/2019 SUBJECTIVE: Less congested, less shortness of breath. Off antimicrobials. OBJECTIVE: VITAL SIGNS: Blood pressure 149/89, pulse 103, and respirations 28. LUNGS: Few rhonchi. HEART: Regular rhythm and rate. Normal S1, S2. ABDOMEN: Soft. G-tube intact. EXTREMITIES: No edema. IMPRESSION: 1. Staphylococcus aureus and [facility]-acquired pneumonia, improved. 2. Urinary tract infection, resolved. 3. Leukocytosis, recovered. 4. Type 2 diabetes mellitus, stable. 5. Hypertensive heart disease, controlled blood pressure. 6. Acute myocardial ischemia, non-ST elevation infarction precipitated by sepsis and shock, resolved. 7. Dehydration and hypernatremia, improved. 8. Dysphagia with G-tube. 9. Severe protein-calorie malnutrition. PLAN: 1. Respiratory hygiene and bronchodilator. 2. Off antimicrobials. 3. Maintain adequate free water replacement per feeding tube as well as protein supplements and nutrition. 4. Titrate antianginal regimen. 5. Continue anti-platelet therapy and beta-blockade. 6. Stable for transfer back to group home facility for long-term care. Jagjit Wright M.D. DR: APRIL JOB#: [id number] CC:
== END 2019-01-02 12:44 | DRG 871 ==
LOC: EDBD 03:14 → EMR 03:42 → 2W 03:50 → EDBEDREQ 07:07 → EDBEDREQSVC 07:08 → EDBEDREQ 08:47 → 2W 13:34
PROC: 5A09357 Assistance with Respiratory Ventilation, Less than 24 Consecutive Hours, Continuous Positive Airway Pressure (ICD-10-PCS; principal; 2018-12-24)
DX: A41.9 Sepsis, unspecified organism (principal); I21.9 Acute myocardial infarction, unspecified; J69.0 Pneumonitis due to inhalation of food and vomit; E43 Unspecified severe protein-calorie malnutrition; J15.211 Pneumonia due to Methicillin susceptible Staphylococcus aureus; J96.00 Acute respiratory failure, unspecified whether with hypoxia or hypercapnia; I50.33 Acute on chronic diastolic (congestive) heart failure; R47.01 Aphasia; E87.0 Hyperosmolality and hypernatremia; N39.0 Urinary tract infection, site not specified; G93.40 Encephalopathy, unspecified; Z66 Do not resuscitate; R13.10 Dysphagia, unspecified; M19.90 Unspecified osteoarthritis, unspecified site; M81.0 Age-related osteoporosis without current pathological fracture; E86.0 Dehydration; F03.90 Unspecified dementia, unspecified severity, without behavioral disturbance, psychotic disturbance, mood disturbance, and anxiety; I11.0 Hypertensive heart disease with heart failure; E86.1 Hypovolemia; E87.8 Other disorders of electrolyte and fluid balance, not elsewhere classified; E11.21 Type 2 diabetes mellitus with diabetic nephropathy; B95.5 Unspecified streptococcus as the cause of diseases classified elsewhere; E87.6 Hypokalemia; J39.2 Other diseases of pharynx; D64.9 Anemia, unspecified; Z93.1 Gastrostomy status; Z68.25 Body mass index [BMI] 25.0-25.9, adult; Z86.73 Personal history of transient ischemic attack (TIA), and cerebral infarction without residual deficits
CPT/HCPCS: 36415; 36600; 70450; 71045; 71250; 80048; 80053; 80202; 81003; 81050; 82270; 82550; 82553; 82575; 82803; 82962; 83540; 83550; 83605; 83735; 83880; 84100; 84156; 84484; 85007; 85025; 86710; 87040; 87070; 87081; 87086; 87181; 87205; 93005; 94640; 94660; 94664; 94760; 96361; 96365; 96368; 99291; J1815; J7620; J8499